=== PATIENT | female | born 1955 | race Caucasian/White ===

== ENCOUNTER → 2020-06-16 11:15 | Outpatient (BNV) | payer MEDICARE, MEDICAID, SELFPAY | PROVIDERS: PCP Internal Medicine; Visit Provider Internal Medicine Medical Oncology | DX: D72.819 Decreased white blood cell count, unspecified (principal) | CPT/HCPCS: 99212; 99213; 99214 ==

== ENCOUNTER 2020-06-18 11:19 | Outpatient (REF) | payer MEDICARE, MEDICAID, SELFPAY | END 2020-06-18 11:20 | disposition home or self-care (01) | LOC: HO.LAB 11:19 | PROVIDERS: Visit Provider Obstetrics & Gynecology | DX: L29.2 Pruritus vulvae (principal) | CPT/HCPCS: 56605; 88305; 99202 ==

== ENCOUNTER 2020-07-11 10:22 | Outpatient (REF) | payer MEDICARE, MEDICAID, SELFPAY | END 2020-07-11 10:23 | disposition home or self-care (01) | LOC: HO.LAB 10:22 | PROVIDERS: Visit Provider Obstetrics & Gynecology | DX: L29.2 Pruritus vulvae (principal) | CPT/HCPCS: 56605; 88305 ==

== ENCOUNTER → 2020-08-01 09:05 | Outpatient (BNVA) | payer MEDICARE, MEDICAID, SELFPAY | PROVIDERS: Visit Provider Obstetrics & Gynecology | DX: L29.2 Pruritus vulvae (principal) | CPT/HCPCS: 99212 ==

== ENCOUNTER → 2020-08-29 10:20 | Outpatient (BNVA) | payer MEDICARE, MEDICAID, SELFPAY | PROVIDERS: PCP Internal Medicine; Visit Provider Obstetrics & Gynecology | DX: L90.0 Lichen sclerosus et atrophicus (principal) | CPT/HCPCS: 99212 ==

== ENCOUNTER 2020-10-02 09:40 | Outpatient (REF) | payer MEDICARE, MEDICAID, SELFPAY ==
[2020-10-02 10:21] LABS: MANUAL DIFF FLAG NO
[2020-10-02 10:25] LABS: Basophils Percent Auto 0.6 % (0-2); Eosinophils Absolute Auto 0.1 X10*3/uL (0.0-0.4); Eosinophils Percent Auto 1.9 % (0-4); Hematocrit 37.7 % (37-47); Hemoglobin 12.2 g/dl (12.0-16.0); Imm Gran Abs Auto 0.01 X10*3/uL (0.00-0.03); Imm Gran Pct Auto 0.2 % (0.0-0.4); Lymphocytes Absolute Auto 1.8 X10*3/uL (1.2-4.9); Lymphocytes Percent Auto 28.7 % (20-40); Mean Corpuscular HGB Conc 32.4 g/dl (31.0-35.0); Mean Corpuscular Hemoglobin 30.2 pg (27.0-33.0); Mean Corpuscular Volume 93.3 fL (80-98); Mean Platelet Volume 9.6 fL (9.4-12.3); Monocytes Absolute Auto 0.5 X10*3/uL (0.1-1.2); Monocytes Percent Auto 8.7 % (2-11); Neutrophils Absolute Auto 3.7 X10*3/uL (2.0-8.3); Neutrophils Percent Auto 59.9 % (45-73); Platelet Count 266 X10*3/uL (160-400); Red Blood Count 4.04 X10*6/uL (4.20-5.50); Red Cell Distribution Width 13.5 % (11.0-16.0); White Blood Count 6.2 X10*3/uL (4.8-10.8)
[2020-10-02 10:54] LABS: Alanine Aminotransferase 26 U/L (0-31); Alkaline Phosphatase 116 U/L (39-117); Anion Gap 11 (12-20); Aspartate Amino Transferase 23 U/L (5-31); Bilirubin Total 0.9 mg/dL (0.0-1.0); Blood Urea Nitrogen 17 mg/dL (9-16); Carbon Dioxide 30 mmol/L (22-29); Chloride 103 mmol/L (96-108); Estimated Glomerular Filt Rate > 60; Glucose Random 99 mg/dL (60-115); Potassium 4.3 mmol/L (3.3-5.1); Sodium 140 mmol/L (135-145); Total Protein 7.3 g/dL (6.5-8.0)
== END 2020-10-02 09:41 | disposition home or self-care (01) ==
LOC: HO.LAB 09:40
PROVIDERS: PCP Internal Medicine; Visit Provider Internal Medicine
DX: D50.8 Other iron deficiency anemias (principal); E78.00 Pure hypercholesterolemia, unspecified; I10 Essential (primary) hypertension; R74.01 Elevation of levels of liver transaminase levels; Z79.01 Long term (current) use of anticoagulants
CPT/HCPCS: 36415; 80053; 85025

== ENCOUNTER 2021-01-07 11:21 | Outpatient (REF) | payer MEDICARE, MEDICAID, SELFPAY ==
--- NOTE | ~2021-01-07 | MM_ITS ---
EXAMINATION: MM SCREENING DIGITAL BREAST TOMOSYNTHESIS, BILATERAL CLINICAL INFORMATION: Screening. Asymptomatic. The lifetime risk of breast cancer based on the Tyrer-Cuzick Model is 4.2%. COMPARISON: Mammography: January 02, 2019 and studies dating back to August 09, 2012 TECHNIQUE: Digital breast tomosynthesis is performed in both the craniocaudal and mediolateral oblique views along with computer-aided detection (CAD). Synthesized 2D images are generated from the tomosynthesis. FINDINGS: There are scattered areas of fibroglandular density (ACR BI-RADS breast composition Category b). There are no significant masses, abnormal calcifications, or other abnormalities. MM/MM tomosynthesis screening BI IMPRESSION: There are no significant changes from prior study. ASSESSMENT: BI-RADS 1: Negative RECOMMENDATION: Routine annual mammography screening. This patient's information was entered into a reminder system with a target due date for their next mammogram.
== END 2021-01-07 11:22 | disposition home or self-care (01) ==
LOC: HO.MAMMO 11:21
PROVIDERS: Visit Provider Internal Medicine
DX: Z12.31 Encounter for screening mammogram for malignant neoplasm of breast (principal)
CPT/HCPCS: 77063; 77067

== ENCOUNTER → 2021-02-18 11:04 | Outpatient (BNVA) | payer MEDICARE, MEDICAID, SELFPAY | PROVIDERS: PCP Internal Medicine; Visit Provider Obstetrics & Gynecology | DX: L90.0 Lichen sclerosus et atrophicus (principal) | CPT/HCPCS: 99212 ==

== ENCOUNTER 2021-04-21 11:59 | Outpatient (REF) | payer MEDICARE, MEDICAID, SELFPAY ==
[2021-04-21 12:35] LABS: MANUAL DIFF FLAG NO
[2021-04-21 12:38] LABS: Basophils Percent Auto 0.6 % (0-2); Eosinophils Absolute Auto 0.1 X10*3/uL (0.0-0.4); Eosinophils Percent Auto 2.2 % (0-4); Hematocrit 36.7 % (37-47); Hemoglobin 11.9 g/dl (12.0-16.0); Imm Gran Abs Auto 0.01 X10*3/uL (0.00-0.03); Imm Gran Pct Auto 0.2 % (0.0-0.4); Lymphocytes Absolute Auto 1.4 X10*3/uL (1.2-4.9); Lymphocytes Percent Auto 25.9 % (20-40); Mean Corpuscular HGB Conc 32.4 g/dl (31.0-35.0); Mean Corpuscular Hemoglobin 30.1 pg (27.0-33.0); Mean Corpuscular Volume 92.9 fL (80-98); Mean Platelet Volume 9.4 fL (9.4-12.3); Monocytes Absolute Auto 0.6 X10*3/uL (0.1-1.2); Monocytes Percent Auto 10.2 % (2-11); Neutrophils Absolute Auto 3.3 X10*3/uL (2.0-8.3); Neutrophils Percent Auto 60.9 % (45-73); Platelet Count 263 X10*3/uL (160-400); Red Blood Count 3.95 X10*6/uL (4.20-5.50); Red Cell Distribution Width 12.8 % (11.0-16.0); White Blood Count 5.4 X10*3/uL (4.8-10.8)
[2021-04-21 13:53] LABS: Alanine Aminotransferase 14 U/L (0-31); Albumin Level 4.2 g/dL (3.5-5.0); Alkaline Phosphatase 98 U/L (39-117); Anion Gap 11 (12-20); Aspartate Amino Transferase 15 U/L (5-31); Bilirubin Total 0.8 mg/dL (0.0-1.0); Blood Urea Nitrogen 16 mg/dL (9-16); Calcium 9.4 mg/dL (8.4-10.2); Carbon Dioxide 27 mmol/L (22-29); Chloride 103 mmol/L (96-108); Cholesterol 149 mg/dL; Estimated Glomerular Filt Rate > 60; Glucose Random 87 mg/dL (60-115); HDL Cholesterol 58 mg/dL; LDL Cholesterol Calculated 77 mg/dl; Potassium 4.1 mmol/L (3.3-5.1); Sodium 137 mmol/L (135-145); Total Protein 7.3 g/dL (6.5-8.0); Triglycerides 73 mg/dL
== END 2021-04-21 12:00 | disposition home or self-care (01) ==
LOC: HO.LAB 11:59
PROVIDERS: Absent Provider Internal Medicine Medical Oncology; PCP Internal Medicine; Visit Provider Internal Medicine
DX: E78.00 Pure hypercholesterolemia, unspecified (principal); F33.42 Major depressive disorder, recurrent, in full remission; I10 Essential (primary) hypertension; R51.9 Headache, unspecified
CPT/HCPCS: 36415; 80053; 80061; 85025

== ENCOUNTER 2021-11-02 10:18 | Outpatient (REF) | payer MEDICARE, MEDICAID, SELFPAY ==
[2021-11-02 12:58] LABS: Alanine Aminotransferase 40 U/L (0-31); Albumin Level 4.1 g/dL (3.5-5.0); Alkaline Phosphatase 131 U/L (39-117); Anion Gap 11 (12-20); Aspartate Amino Transferase 31 U/L (5-31); Bilirubin Total 0.7 mg/dL (0.0-1.0); Blood Urea Nitrogen 17 mg/dL (9-16); Calcium 9.4 mg/dL (8.4-10.2); Carbon Dioxide 27 mmol/L (22-29); Chloride 105 mmol/L (96-108); Estimated Glomerular Filt Rate > 60; Glucose Random 96 mg/dL (60-115); Potassium 4.4 mmol/L (3.3-5.1); Sodium 139 mmol/L (135-145); Thyroid Stimulating Hormone 1.34 uIU/mL (0.32-4.0); Total Protein 7.5 g/dL (6.5-8.0)
[2021-11-03 14:10] LABS: BV Int Neg Control Negative (Negative); BV Int Pos Control Positive (Positive)
== END 2021-11-02 10:19 | disposition home or self-care (01) ==
LOC: HO.LAB 10:18
PROVIDERS: Absent Provider Internal Medicine; PCP Internal Medicine; Visit Provider Advanced Practice Midwife
DX: Z01.411 Encounter for gynecological examination (general) (routine) with abnormal findings (principal); N89.8 Other specified noninflammatory disorders of vagina; E78.00 Pure hypercholesterolemia, unspecified; I10 Essential (primary) hypertension; R06.02 Shortness of breath; R53.83 Other fatigue; L90.0 Lichen sclerosus et atrophicus; L80 Vitiligo
CPT/HCPCS: 36415; 80053; 84443; 87480; 87510; 87660; 99212

== ENCOUNTER 2022-01-08 11:12 | Outpatient (REF) | payer MEDICARE, MEDICAID, SELFPAY ==
--- NOTE | ~2022-01-08 | MM_ITS ---
EXAMINATION: MM SCREENING DIGITAL BREAST TOMOSYNTHESIS, BILATERAL CLINICAL INFORMATION: Screening. Asymptomatic. History reduction mammoplasty 06/16/2017. The lifetime risk of breast cancer based on the Tyrer-Cuzick Model is 4%. COMPARISON: Mammography: 01/07/2021, 01/02/2019, 12/26/2017, 12/15/2016 TECHNIQUE: Digital breast tomosynthesis is performed in both the craniocaudal and mediolateral oblique views along with computer-aided detection (CAD). Synthesized 2D images are generated from the tomosynthesis. Additional right MLO and left MLO x2 views are obtained. FINDINGS: There are scattered areas of fibroglandular density (ACR BI-RADS breast composition Category b). There are no significant masses, abnormal calcifications, or other abnormalities. Prior reduction mammoplasty. There is no developing density or interval mass or architectural abnormality. The axilla are unremarkable. MM/MM tomosynthesis screening BI IMPRESSION: No mammographic evidence of malignancy. ASSESSMENT: BI-RADS 2: Benign RECOMMENDATION: Routine annual mammography screening. This patient's information was entered into a reminder system with a target due date for their next mammogram.
== END 2022-01-08 11:13 | disposition home or self-care (01) ==
LOC: HO.MAMMO 11:12
PROVIDERS: PCP Internal Medicine; Visit Provider Internal Medicine
DX: Z12.31 Encounter for screening mammogram for malignant neoplasm of breast (principal)
CPT/HCPCS: 77063; 77067

== ENCOUNTER 2022-04-27 13:16 | Outpatient (REF) | payer MEDICARE, MEDICAID, SELFPAY ==
[2022-04-27 13:46] LABS: MANUAL DIFF FLAG NO
[2022-04-27 14:23] LABS: Basophils Percent Auto 0.6 % (0-2); Eosinophils Absolute Auto 0.1 X10*3/uL (0.0-0.4); Eosinophils Percent Auto 2.5 % (0-4); Hematocrit 39.1 % (37.0-47.0); Hemoglobin 12.8 g/dl (12.0-16.0); Imm Gran Abs Auto 0.01 X10*3/uL (0.00-0.03); Imm Gran Pct Auto 0.2 % (0.0-0.4); Lymphocytes Absolute Auto 1.6 X10*3/uL (1.2-4.9); Lymphocytes Percent Auto 30.7 % (20-40); Mean Corpuscular HGB Conc 32.7 g/dl (31.0-35.0); Mean Corpuscular Hemoglobin 30.5 pg (27.0-33.0); Mean Corpuscular Volume 93.1 fL (80.0-98.0); Mean Platelet Volume 9.6 fL (9.4-12.3); Monocytes Absolute Auto 0.6 X10*3/uL (0.1-1.2); Monocytes Percent Auto 10.6 % (2-11); Neutrophils Absolute Auto 2.9 x10*3/uL (2.0-8.3); Neutrophils Percent Auto 55.4 % (45-73); Platelet Count 292 X10*3/uL (160-400); Red Cell Distribution Width 13.3 % (11.0-16.0); White Blood Count 5.3 X10*3/uL (4.8-10.8)
[2022-04-27 15:10] LABS: Alanine Aminotransferase 29 U/L (0-31); Albumin Level 4.1 g/dL (3.5-5.0); Alkaline Phosphatase 130 U/L (39-117); Anion Gap 13 (12-20); Aspartate Amino Transferase 24 U/L (5-31); Bilirubin Total 0.7 mg/dL (0.0-1.0); Blood Urea Nitrogen 16 mg/dL (9-16); Calcium 8.7 mg/dL (8.4-10.2); Carbon Dioxide 28 mmol/L (22-29); Chloride 101 mmol/L (96-108); Cholesterol 165 mg/dL; Estimated Glomerular Filt Rate > 60; Glucose Random 85 mg/dL (60-115); HDL Cholesterol 56 mg/dL; LDL Cholesterol Calculated 96 mg/dl; Potassium 4.4 mmol/L (3.3-5.1); Sodium 138 mmol/L (135-145); Total Protein 7.2 g/dL (6.5-8.0); Triglycerides 66 mg/dL
[2022-04-27 16:55] LABS: Estimated Average Glucose 117 mg/dL; Hemoglobin A1c % 5.7 %
== END 2022-04-27 13:17 | disposition home or self-care (01) ==
LOC: HO.LAB 13:16
PROVIDERS: PCP Internal Medicine; Visit Provider Internal Medicine
DX: D50.8 Other iron deficiency anemias (principal); I10 Essential (primary) hypertension; I48.91 Unspecified atrial fibrillation; M48.061 Spinal stenosis, lumbar region without neurogenic claudication
CPT/HCPCS: 36415; 80053; 80061; 83036; 85025

== ENCOUNTER 2022-10-28 13:21 | Outpatient (REF) | payer OTHER, SELFPAY ==
[2022-10-28 13:34] LABS: MANUAL DIFF FLAG NO
[2022-10-28 14:02] LABS: Basophils Percent Auto 0.5 % (0-2); Eosinophils Absolute Auto 0.1 X10*3/uL (0.0-0.4); Eosinophils Percent Auto 1.7 % (0-4); Hematocrit 39.7 % (37.0-47.0); Imm Gran Abs Auto 0.02 X10*3/uL (0.00-0.03); Imm Gran Pct Auto 0.3 % (0.0-0.4); Lymphocytes Absolute Auto 1.7 X10*3/uL (1.2-4.9); Lymphocytes Percent Auto 25.8 % (20-40); Mean Corpuscular HGB Conc 32.7 g/dl (31.0-35.0); Mean Corpuscular Hemoglobin 30.7 pg (27.0-33.0); Mean Corpuscular Volume 93.9 fL (80.0-98.0); Mean Platelet Volume 9.2 fL (9.4-12.3); Monocytes Absolute Auto 0.6 X10*3/uL (0.1-1.2); Monocytes Percent Auto 8.9 % (2-11); Neutrophils Absolute Auto 4.1 x10*3/uL (2.0-8.3); Neutrophils Percent Auto 62.8 % (45-73); Platelet Count 271 X10*3/uL (160-400); Red Blood Count 4.23 X10*6/uL (4.20-5.50); Red Cell Distribution Width 13.3 % (11.0-16.0); White Blood Count 6.5 X10*3/uL (4.8-10.8)
[2022-10-28 15:58] LABS: Alanine Aminotransferase 49 U/L (0-31); Alkaline Phosphatase 122 U/L (39-117); Anion Gap 12 (12-20); Aspartate Amino Transferase 32 U/L (5-31); Bilirubin Total 0.8 mg/dL (0.0-1.0); Blood Urea Nitrogen 17 mg/dL (9-16); Carbon Dioxide 31 mmol/L (22-29); Chloride 101 mmol/L (96-108); Estimated Glomerular Filt Rate > 60; Glucose Random 101 mg/dL (60-115); Potassium 4.5 mmol/L (3.3-5.1); Sodium 139 mmol/L (135-145)
[2022-10-28 16:13] LABS: Ferritin 119 ng/mL (10-250); Folate 7.9 ng/mL (> or = 4.0); Vitamin B12 459 pg/mL (200-900)
== END 2022-10-28 13:22 | disposition home or self-care (01) ==
LOC: HO.LAB 13:21
PROVIDERS: PCP Internal Medicine; Visit Provider Internal Medicine
DX: D50.8 Other iron deficiency anemias (principal); I10 Essential (primary) hypertension; I48.91 Unspecified atrial fibrillation; Z98.84 Bariatric surgery status
CPT/HCPCS: 36415; 80053; 82607; 82728; 82746; 85025

== ENCOUNTER 2023-01-22 10:26 | Outpatient (REF) | payer OTHER, SELFPAY ==
--- NOTE | ~2023-01-22 | MM_ITS ---
EXAMINATION: MM SCREENING DIGITAL BREAST TOMOSYNTHESIS, BILATERAL CLINICAL INFORMATION: Screening. Asymptomatic. The lifetime risk of breast cancer based on the Tyrer-Cuzick Model is 4%. COMPARISON: Mammography: 01/08/2022, 01/07/2021, 01/02/2019 TECHNIQUE: Digital breast tomosynthesis is performed in both the craniocaudal and mediolateral oblique views along with computer-aided detection (CAD). Synthesized 2D images are generated from the tomosynthesis. FINDINGS: There are scattered areas of fibroglandular density (ACR BI-RADS breast composition Category b). There are no significant masses, abnormal calcifications, or other abnormalities. Parenchymal pattern is similar to prior studies. There is no developing density or architectural abnormality. The axilla and skin contours are unremarkable. No significant changes. MM/MM tomosynthesis screening BI IMPRESSION: No mammographic evidence of malignancy. ASSESSMENT: BI-RADS 1: Negative RECOMMENDATION: Routine annual mammography screening. This patient's information was entered into a reminder system with a target due date for their next mammogram.
== END 2023-01-22 10:27 | disposition home or self-care (01) ==
LOC: HO.MAMMO 10:26
PROVIDERS: PCP Internal Medicine; Visit Provider Internal Medicine
DX: Z12.31 Encounter for screening mammogram for malignant neoplasm of breast (principal)
CPT/HCPCS: 77063; 77067

== ENCOUNTER 2023-04-22 10:52 | Emergency (ER) | payer OTHER, SELFPAY ==
--- NOTE | ~2023-04-22 | XR_ITS ---
EXAMINATION: XR HIP, LEFT CLINICAL INFORMATION: Pain COMPARISON: Left hip radiograph from 12/23/2016 TECHNIQUE: Single view the pelvis 2 views of the left hip FINDINGS: No acute visible fracture or dislocation. Degenerative changes of the bilateral femoral acetabular joints. Degenerative arthropathy of the lower lumbar spine and lumbosacral spine. Enthesopathy along the bilateral iliac wings. Joint spaces and alignment are otherwise maintained. Soft tissues are unremarkable. Bowel gas is unremarkable. Pelvic phleboliths are noted. XR/XR hip LT w PEL1V IMPRESSION: 1. No acute visible fracture or dislocation. 2. Degenerative changes of the bilateral femoral acetabular joints.
[2023-04-22 11:02] VITALS: BP 151/69; PULSE 60; RESP 16; TEMP 36.8; O2SAT 99; BMI 34.5
--- NOTE | 2023-04-22 11:04 | ED.GENADULT ---
HPI - General Adult General Chief complaint: General Medical Stated complaint: ? hip pain Time Seen by Provider: 04/22/23 11:50 History of Present Illness HPI narrative: 68 year old female with history of osteoarthritis, seen by orthopedics and on chronic oxycodone, as well as depression, amongst others, presents to ER today with 4-day history of left-sided back pain radiating through left leg. Patient describes that pain originates in left gluteus area and runs posteriorly through leg until wrapping around and reaching dorsum of left foot. Pain does not extend into toes. She says pain is mild at rest and worsens with standing and walking. Says it can be sharp and feels like there is tension in her left lower back. She has been taking Tylenol as well as Percocet for pain. She denies any history of trauma or injury, stating that the pain began while sitting down. Denies history of back surgery. Denies any incontinence or numbness in saddle area. MD complaint: left hip, buttock and low back pain Onset (ago): day(s) Location: back Radiation: distal Severity: moderate Quality: sharp and constant Relieving factors: rest Exacerbating factors: movement Associated symptoms: denies other symptoms Treatments prior to arrival: other (Tylenol, oxycodone) Related Data Home Medications Medication Instructions Recorded Confirmed amlodipine 5 mg tablet 1 tab PO DAILY 06/16/20 11/01/22 apixaban 5 mg tablet (Eliquis) 1 tab PO BID 06/16/20 11/01/22 bupropion HCl 100 mg tablet,12 hr 1 tab PO QAM 06/16/20 11/01/22 sustained-release cyanocobalamin (vitamin B-12) 1,000 mcg QMONTH 06/16/20 11/01/22 1,000 mcg/mL injection syringe gabapentin 300 mg capsule 300 mg PO BID 06/16/20 11/01/22 metoprolol succinate 25 mg 25 mg PO BID 06/16/20 11/01/22 tablet,extended release 24 hr multivitamin 1 tab PO DAILY 06/16/20 11/01/22 omeprazole 20 mg capsule,delayed 20 mg PO DAILY 06/16/20 11/01/22 release tramadol 50 mg tablet 50 mg PO DAILY 06/16/20 11/01/22 atorvastatin 20 mg tablet 20 mg PO DAILY 11/02/21 11/01/22 ferrous sulfate 324 mg (65 mg 324 mg PO DAILY 11/02/21 11/01/22 iron) tablet,delayed release trazodone 150 mg tablet 150 mg PO BEDTIME PRN Anxiety 11/02/21 11/01/22 Previous Rx's Medication Instructions Recorded clobetasol 0.05 % topical ointment 1 appl topical .every other night 08/29/20 6 weeks #60 grams cyclobenzaprine 10 mg tablet 10 mg PO TID PRN muscle spasm #14 04/22/23 tabs lidocaine 5 % topical patch 1 patch topical DAILY #15 ea 04/22/23 prednisone 50 mg tablet 50 mg PO DAILY #5 tabs 04/22/23 Allergies Allergy/AdvReac Type Severity Reaction Status Date / Time No Known Allergies Allergy Verified 08/05/22 11:16 [No Known Allergies*] Review of Systems Review of Systems: Yes all other systems are reviewed and are negative [facility] Past Medical History Medical History Anemia B12 deficiency Hepatitis C Leukopenia Surgical History H/O bilateral breast reduction surgery H/O gastric bypass H/O: hysterectomy Family History Family History (Updated 08/05/22 @ 11:16 by Eun Heath CMA) Other No family history of cancer Social History Social History Household Members: Children Housing: Apartment Are you a primary patient care provider to a significant other at home: No Do you presently have visiting nurse or other home services: No Alcohol intake: never Patient Tobacco Use Status: Never used Tobacco Advance Directives: Yes Advance Directives Information Provided: Yes Advance Directives on File: No service: No Current occupational status: unemployed Sexual orientation: Straight/Heterosexual Gender identity: Female Physical Exam ED Vital Signs: Vital Signs - 24 hr 04/22/23 11:02 Temperature 98.3 F Pulse Rate 60 Respiratory Rate 16 Blood Pressure 151/69 H Pulse Oximetry 99 Oxygen Delivery Method Room Air BMI result Body Mass Index 34.5 Const General: cooperative, healthy appearing, comfortable and no acute distress Orientation/consciousness: patient oriented x3 Limitations: language barrier (History obtained by translation from family members. ) Resp Effort & Inspection: normal respiratory effort and able to speak in complete sentences Auscultation: clear to auscultation bilaterally Cardio Rate: regular rate Rhythm: regular rhythm Peripheral pulses: posterior tibial pulses present and dorsalis pedis present Back/Spine/Pelvis Thoracic/Lumbar Spine: thoracic and lumbar spine normal to inspection and straight leg raise positive left Sacrum: no ecchymosis, no erythema and no swelling Neuro General: patient oriented x3 Extrem Left lower extremity: normal to inspection, full ROM, normal capillary refill, hip/thigh (Pain increased with extension of left hip.) and foot Course Course Course Narrative: This is an RME: Additional HPI, ROS, PE not included below will be deferred to primary provider. This is a [id number], with no known medical problems, presenting to the emergency department with complaints of left hip pain x 4 days. No trauma or injury. TTP to left posterior hip. Ambulatory with antalgic gait. No urinary symptoms. VSS. Plan: Xr left hip ordered. Medical Decision Making Medical Decision Making [facility] Narrative: 68-year-old female with history of osteoarthritis on chronic oxycodone, presents with 4-day history of pain originating in lumbar/sacral region of left back, and radiating through posterior leg and wrapping around onto dorsum of foot. Physical exam remarkable for positive straight leg raise and increased pain with extension of hip. Pulses and capillary refill intact. No numbness to saddle region or incontinence. Discharged home with prescription for Flexeril and prednisone. Will instruct patient to follow up with her orthopedist. Differential Diagnosis Differential Diagnoses: The differential diagnosis associated with the presentation includes Sciatic nerve root compression, lumbosacral radiculopathy, cauda equina syndrome, hip fracture, gluteus strain. Independent Interpretation I performed an independent interpretation of an: Plain X-Ray Interpretation: no acute fx, agree w/ radiology read Radiology Impression Discussion of test interpretation with radiology: I have reviewed the radiologist's reading. Radiologist Impression: EXAMINATION: XR HIP, LEFT CLINICAL INFORMATION: Pain COMPARISON: Left hip radiograph from 12/23/2016 TECHNIQUE: Single view the pelvis 2 views of the left hip FINDINGS: No acute visible fracture or dislocation. Degenerative changes of the bilateral femoral acetabular joints. Degenerative arthropathy of the lower lumbar spine and lumbosacral spine. Enthesopathy along the bilateral iliac wings. Joint spaces and alignment are otherwise maintained. Soft tissues are unremarkable. Bowel gas is unremarkable. Pelvic phleboliths are noted. XR/XR hip LT w PEL1V IMPRESSION: 1.? No acute visible fracture or dislocation. 2.? Degenerative changes of the bilateral femoral acetabular joints. Independent Historian Clinical information obtained from an independent historian. History obtained from or confirmed by: Other (adult children at the bedside) External Record Review External record reviewed: Outpatient record and Prior outpatient labs Prescription Management I considered prescription management with: Pain Medication Chronic Conditions Patient?s care impacted by: Other (chronic pain, OA, obesity) Critical Care Time Critical Care Time Critical Care Time: No Discharge Plan Discharge Clinical Impression: Sciatica Patient Disposition: Home, Self-Care Instructions: Sciatica (ED) Additional Instructions: Your x-ray today did not show any broken bones. Take the prescribed medications to help with pain and inflammation that may be compressing a nerve and causing your symptoms Rest. No strenuous activity Follow up with [facility] If you develop new or worsening symptoms call 911 or come back to the ER for further evaluation. Jones radiograf?a de hoy no mostr? dulce?n hueso roto. Moraida los medicamentos recetados para ayudar con el dolor y la inflamaci?n que pueden estar comprimiendo un nervio y causando valentina s?ntomas. Descansar. Sin actividad extenuante Seguimiento con [facility] Si desarrolla s?ntomas nuevos o que empeoran, llame al 911 o regrese a la le de emergencias para spencer evaluaci?n adicional. Prescriptions: New cyclobenzaprine 10 mg tablet 10 mg PO TID PRN (Reason: muscle spasm) Qty: 14 0RF lidocaine 5 % adhesive patch,medicated 1 patch topical DAILY Qty: 15 0RF Rx Instructions: leave on most painful area for up to 12 hrs prednisone 50 mg tablet 50 mg PO DAILY Qty: 5 0RF No Action amlodipine 5 mg tablet 1 tab PO DAILY bupropion HCl 100 mg tablet sustained-release 12 hr 1 tab PO QAM Eliquis 5 mg tablet 1 tab PO BID gabapentin 300 mg Capsule 300 mg PO BID omeprazole 20 mg Capsule,Delayed Release(Dr/Ec) 20 mg PO DAILY multivitamin Tablet 1 tab PO DAILY tramadol 50 mg Tablet 50 mg PO DAILY metoprolol succinate 25 mg Tablet Extended Release 24 Hr 25 mg PO BID cyanocobalamin (vitamin B-12) 1,000 mcg/mL Syringe 1,000 mcg QMONTH clobetasol 0.05 % ointment 1 appl topical .every other night 42 Days Qty: 60 3RF ferrous sulfate 324 mg (65 mg iron) tablet,delayed release (DR/EC) 324 mg PO DAILY trazodone 150 mg tablet 150 mg PO BEDTIME PRN (Reason: Anxiety) atorvastatin 20 mg tablet 20 mg PO DAILY Referrals: Laura Morgan MD [Primary Care Provider] - Interventions: ED Discharge Assessment Last Done: 04/22/23 14:09 Discharge Date/Time: 04/22/23 14:16 Print Language: Arabic
== END 2023-04-22 14:16 | disposition home or self-care (01) ==
PROVIDERS: Emergency Provider Emergency Medicine; PCP Internal Medicine
DX: M54.42 Lumbago with sciatica, left side (principal)
CPT/HCPCS: 73502; 99282; 99283

== ENCOUNTER → 2023-12-30 11:53 | Outpatient (BNVA) | payer OTHER, SELFPAY | PROVIDERS: PCP Internal Medicine; Visit Provider Nurse Practitioner ==

== ENCOUNTER 2024-01-30 10:54 | Outpatient (REF) | payer OTHER, SELFPAY ==
--- NOTE | ~2024-01-30 | MM_ITS ---
EXAMINATION: MM SCREENING DIGITAL BREAST TOMOSYNTHESIS, BILATERAL CLINICAL INFORMATION: Screening. Asymptomatic. The patient is status post bilateral breast reduction. COMPARISON: Mammography: This study is compared with prior exams dating back to 2019. TECHNIQUE: Digital breast tomosynthesis is performed in both the craniocaudal and mediolateral oblique views along with computer-aided detection (CAD). Synthesized 2D images are generated from the tomosynthesis. FINDINGS: There are scattered areas of fibroglandular density (ACR BI-RADS breast composition Category b). There are no significant masses, abnormal calcifications, or other abnormalities. Post reduction changes are present in each breast. MM/MM tomosynthesis screening BI IMPRESSION: No mammographic evidence of malignancy. ASSESSMENT: BI-RADS BI-RADS 2 - Benign Findings RECOMMENDATION: Routine annual mammography screening. 1 year F/U This examination should not preclude the clinical evaluation of a suspicious palpable abnormality. This patient's information was entered into a reminder system with a target due date for their next mammogram.
== END 2024-01-30 10:55 | disposition home or self-care (01) ==
LOC: HO.MAMMO 10:54
PROVIDERS: PCP Internal Medicine; Visit Provider Internal Medicine
DX: Z12.31 Encounter for screening mammogram for malignant neoplasm of breast (principal)
CPT/HCPCS: 77063; 77067

== ENCOUNTER → 2024-01-30 11:00 | Outpatient (BNV) | payer OTHER, SELFPAY | PROVIDERS: PCP Internal Medicine; Visit Provider Radiology Diagnostic Radiology | DX: Z12.31 Encounter for screening mammogram for malignant neoplasm of breast (principal) | CPT/HCPCS: 77063; 77067 ==

== ENCOUNTER 2024-02-10 12:03 | Outpatient (AMB) | payer OTHER, SELFPAY ==
--- NOTE | 2024-02-10 12:09 | MHC.OFFVIS ---
Vital Signs 02/10/24 12:11 Height 5 ft 3 in Weight 203 lb BMI 36.0 BP 141/70 H Blood Pressure Location Lt brachial Position Sitting Pulse 54 Intake Visit Reasons: 6 week follow up Intake Note: Patient 6 weeks follow up stool results Patient cc: abdominal pain with bloating, acid reflex with some burning sensation on and off, and denies any other GI issues. Nursing Home Physician Required: Yes Nursing Home Physician Name: [facility] interpeter Accompanied by: Self / Same As Patient Allergies amlodipine Allergy (Unknown, Verified 02/10/24 12:09) Unknown losartan Allergy (Unknown, Verified 02/10/24 12:09) Unknown HPI HPI 6 week follow up: Details: Assessment & Plan (1) Pre-op examination: Code(s): Z01.818 - Encounter for other preprocedural examination Category: Medical (2) CKD (chronic kidney disease) stage 3, GFR 30-59 ml/min: Code(s): N18.30 - Chronic kidney disease, stage 3 unspecified Category: Medical (3) History of DVT in adulthood: Code(s): Z86.718 - Personal history of other venous thrombosis and embolism Category: Medical (4) GERD (gastroesophageal reflux disease): Code(s): K21.9 - Gastro-esophageal reflux disease without esophagitis Category: Medical (5) Chronic anticoagulation: Comment: on Eliquis Code(s): Z79.01 - [facility] (current) use of anticoagulants Category: Medical (6) Afib: Code(s): I48.91 - Unspecified atrial fibrillation Category: Medical Plan [facility] #[id number] She has had prior colonoscopies with Dr. Mills that were negative. She has no FHX of crc or polyps and given her other comorbid medical conditions she is a good Cologuard candidate. I present this to her. Since she would prefer this to a colonoscopy at this time I will order it and see her in 6 weeks Orders: Orders Colonoscopy - GI Use Only 12/30/23 Z01.818 - Encounter for other preprocedural examination Medications: New peg 3350-electrolytes 236-22.74-6.74 -5.86 gram (Golytely) until fecal effluent is clear; do not exceed a total volume of 2,000 mL 240 mL PO Q10M 4,000 mL 0RF 1 day Z12.11 - Encounter for screening for malignant neoplasm of colon bisacodyl (Dulcolax (bisacodyl)) 10 mg (2 x 5 mg) PO BEDTIME 4 tabs 0RF 2 days COLOGUARD She had a positive Cologuard Laboratory Tests 11/17/23 09:52 WBC 7.9 Hgb 12.5 Hct 38.4 MCV 92.8 MCH 30.2 Plt Count 350 D Estimated GFR 54 Ferritin 55 Total Bilirubin 0.6 AST 34 H ALT 52 H Alkaline Phosphatase 98 TODAY'S VISIT [facility] #Jed Live She has upper abd pain but it resolves when she takes omeprazole. However, she has only taking the omeprazole when she gets the pain which isn't the best plan. I explained to her that omeprazole is really meant to be taken every day because it has a 24 hour onset of symptoms. She says she will try taking that every day. In the meantime I will add an EGD to her colonoscopy. There are no prior problems with anesthesia or sedation. She does have AFib and history of DVT and is on Eliquis, there is no respiratory problems. There are no infectious disease problems. Again, she had a positive Cologuard although no polyps on her past colonoscopies with the last being in [address] Mills. Return office visit after the procedures. [facility] Medical History Chronic hepatitis C B12 deficiency Hepatitis C Leukopenia Anemia Surgical History S/P laparoscopy with lysis of adhesions S/P trigger finger release H/O colonoscopy H/O bilateral breast reduction surgery H/O: hysterectomy H/O gastric bypass Family History Other No family history of cancer Social History Household Members: Children Housing: Apartment Are you a primary behavioral health care manager to a significant other at home: No Do you presently have visiting nurse or other home services: No Alcohol intake: never Patient Tobacco Use Status: Never used Tobacco service: No Current occupational status: unemployed Sexual orientation: Straight/Heterosexual Gender identity: Female Female Reproductive History Menstrual Age of Menarche: 11 Review of Systems Const Denies fatigue, Denies fever(s), Denies night sweats, Denies poor appetite and Denies weight loss ENT Reports Normal hearing present, Denies dental pain, Denies dysphagia, Denies hearing loss, Denies mouth pain, Denies odynophagia, Denies throat swelling, Denies tongue swelling and Reports other (Dentition adequate) Card Reports no additional complaints Resp Reports no additional complaints GI Details: Reports abdominal pain, Denies melena, Denies bloating, Denies hematochezia, Denies constipation, Denies GI cramping, Denies dysphagia, Denies excessive flatus, Denies early satiety, Denies heartburn, Denies diarrhea, Denies nausea, Denies odynophagia, Denies vomiting and Denies hematemesis Skin/Breast Denies pruritus, Denies lesions, Denies rash and Denies jaundice Neuro Reports Normal hearing present and Denies Abnormal speech present Endo Denies fatigue Aller/Immun Denies throat swelling and Denies tongue swelling Physical Exam Vital Signs: Last Vital Signs Pulse 54 02/10/24 12:11 BP 141/70 H 02/10/24 12:11 BMI result Body Mass Index 36.0 Const General: cooperative, no acute distress, well developed and well groomed Nutritional Appearance: well nourished and obese Orientation/consciousness: oriented to person, oriented to place and oriented to time Limitations: language barrier HEENT Head: Yes normocephalic and Yes atraumatic Eyes General: appearance normal, both eyes and all related structures Pupils: Equal, round and reactive pupils present Neck Neck: Yes normal visual inspection and Yes no lymphadenopathy Thyroid: Thyroid normal Resp Effort & Inspection: normal respiratory effort and able to speak in complete sentences Auscultation: clear to auscultation bilaterally Cardio Rate: regular rate Rhythm: regular rhythm Heart sounds: Normal, physiologic split S2 sound present Peripheral pulses: radial pulses present and posterior tibial pulses present GI Inspection: No distended, Yes Abdominal panniculus present, Yes obesity, Yes scar and Yes striae Palpation (GI): Soft to palpation, nontender, no guarding, not rigid and No hepatosplenomegaly present Percussion: Yes normal to percussion Auscultation: normal bowel sounds Rectal Exam - Female: deferred Abdomen image: 1. SURGICAL SCAR 2. SURGICA SCAR OLD GASTRIC BYPASS Skin General skin exam: no rashes or lesions noted, turgor normal, skin not dry, no jaundice, No spider nevi and no striae Rashes: no rashes Nails: normal Neuro General: oriented to person, oriented to place and oriented to time Cranial nerves: Yes Equal, round and reactive pupils present and Yes Normal hearing present Speech: No Abnormal speech present Extrem General: Yes normal to inspection, No clubbing, No cyanosis and No edema Psych Appearance: grossly normal and well kempt Mental Status: mental status grossly normal Speech and movement: Normal speech and movement present Affect: normal affect Attitude: cooperative Thought process: Normal thought process present and not confabulating Thought content: Normal thought content present Insight: Limited insight present (Psych) Judgement: Limited judgement present (Psych) Assessment & Plan Assessment & Plan (1) Positive colorectal cancer screening using Cologuard test: Code(s): R19.5 - Other fecal abnormalities Category: Medical (2) Chronic anticoagulation: Comment: on Candyis Code(s): Z79.01 - buttermilk drier operator (current) use of anticoagulants Category: Medical (3) GERD (gastroesophageal reflux disease): Code(s): K21.9 - Gastro-esophageal reflux disease without esophagitis Category: Medical (4) History of DVT in adulthood: Code(s): Z86.718 - Personal history of other venous thrombosis and embolism Category: Medical (5) CKD (chronic kidney disease) stage 3, GFR 30-59 ml/min: Code(s): N18.30 - Chronic kidney disease, stage 3 unspecified Category: Medical (6) Upper abdominal pain: Code(s): R10.10 - Upper abdominal pain, unspecified Category: Medical Plan [facility] #Jed Live She has upper abd pain but it resolves when she takes omeprazole. However, she has only taking the omeprazole when she gets the pain which isn't the best plan. I explained to her that omeprazole is really meant to be taken every day because it has a 24 hour onset of symptoms. She says she will try taking that every day. In the meantime I will add an EGD to her colonoscopy. There are no prior problems with anesthesia or sedation. She does have AFib and history of DVT and is on Eliquis, there is no respiratory problems. There are no infectious disease problems. Again, she had a positive Cologuard although no polyps on her past colonoscopies with the last being in [address] Mills. Return office visit after the procedures. Orders: Orders EGD/[place] Combo - GI Use Only Today R10.10 - Upper abdominal pain, unspecified, R19.5 - Other fecal abnormalities Medications: New omeprazole 20 mg PO DAILY 30 caps 6RF K21.9 - Gastro-esophageal reflux disease without esophagitis, N18.30 - Chronic kidney disease, stage 3 unspecified, R10.10 - Upper abdominal pain, unspecified, R19.5 - Other fecal abnormalities, Z79.01 - buttermilk drier operator (current) use of anticoagulants, Z86.718 - Personal history of other venous thrombosis and embolism Refilled peg 3350-electrolytes 236-22.74-6.74 -5.86 gram (Golytely) until fecal effluent is clear; do not exceed a total volume of 2,000 mL 240 mL PO Q10M 4,000 mL 0RF 1 day Z12.11 - Encounter for screening for malignant neoplasm of colon bisacodyl (Dulcolax (bisacodyl)) 10 mg (2 x 5 mg) PO BEDTIME 4 tabs 0RF 2 days Coding Level of Care Code Est Pt Level 4 (37048) Diagnoses Positive colorectal cancer screening using Cologuard test R19.5 Chronic anticoagulation Z79.01 GERD (gastroesophageal reflux disease) K21.9 History of DVT in adulthood Z86.718 CKD (chronic kidney disease) stage 3, GFR 30-59 ml/min N18.30 Upper abdominal pain R10.10
[2024-02-10 12:11] VITALS: BP 141/70; PULSE 54; BMI 36.0
== END 2024-02-10 12:35 | disposition home or self-care (01) ==
PROVIDERS: PCP Internal Medicine; Visit Provider Nurse Practitioner
DX: R19.5 Other fecal abnormalities (principal); Z79.01 Long term (current) use of anticoagulants; K21.9 Gastro-esophageal reflux disease without esophagitis; Z86.718 Personal history of other venous thrombosis and embolism; N18.30 Chronic kidney disease, stage 3 unspecified; R10.10 Upper abdominal pain, unspecified
CPT/HCPCS: 99214

== ENCOUNTER → 2024-02-10 12:03 | Outpatient (BNVA) | payer OTHER, SELFPAY | PROVIDERS: PCP Internal Medicine; Visit Provider Nurse Practitioner | DX: R19.5 Other fecal abnormalities (principal); R10.10 Upper abdominal pain, unspecified; K21.9 Gastro-esophageal reflux disease without esophagitis; N18.30 Chronic kidney disease, stage 3 unspecified; Z79.01 Long term (current) use of anticoagulants; Z86.718 Personal history of other venous thrombosis and embolism | CPT/HCPCS: 99212 ==

== ENCOUNTER 2024-03-05 10:59 | Outpatient (REF) | payer OTHER, SELFPAY ==
[2024-03-05 13:18] LABS: MANUAL DIFF FLAG NO
[2024-03-05 13:26] LABS: Basophils Percent Auto 0.7 % (0-2); Eosinophils Absolute Auto 0.1 X10*3/uL (0.0-0.4); Eosinophils Percent Auto 1.9 % (0-4); Hematocrit 38.8 % (37.0-47.0); Hemoglobin 12.5 g/dl (12.0-16.0); Imm Gran Abs Auto 0.01 X10*3/uL (0.00-0.03); Imm Gran Pct Auto 0.2 % (0.0-0.4); Lymphocytes Absolute Auto 1.6 X10*3/uL (1.2-4.9); Mean Corpuscular HGB Conc 32.2 g/dl (31.0-35.0); Mean Corpuscular Hemoglobin 29.8 pg (27.0-33.0); Mean Corpuscular Volume 92.4 fL (80.0-98.0); Mean Platelet Volume 9.7 fL (9.4-12.3); Monocytes Absolute Auto 0.5 X10*3/uL (0.1-1.2); Monocytes Percent Auto 9.2 % (2-11); Neutrophils Absolute Auto 3.5 x10*3/uL (2.0-8.3); Platelet Count 256 X10*3/uL (160-400); Red Cell Distribution Width 13.6 % (11.0-16.0); White Blood Count 5.7 X10*3/uL (4.8-10.8)
[2024-03-05 13:46] LABS: Alanine Aminotransferase 44 U/L (0-31); Alkaline Phosphatase 108 U/L (39-117); Anion Gap 13 (12-20); Aspartate Amino Transferase 29 U/L (5-31); Bilirubin Total 0.9 mg/dL (0.0-1.0); Blood Urea Nitrogen 16 mg/dL (9-16); Calcium 9.3 mg/dL (8.4-10.2); Carbon Dioxide 27 mmol/L (22-29); Chloride 105 mmol/L (96-108); Cholesterol 157 mg/dL (<200); Estimated Glomerular Filt Rate > 60; Glucose Random 101 mg/dL (60-115); HDL Cholesterol 62 mg/dL (>40); LDL Cholesterol Calculated 82 mg/dL (<100); Potassium 4.3 mmol/L (3.3-5.1); Sodium 141 mmol/L (135-145); Total Protein 7.4 g/dL (6.5-8.0); Triglycerides 69 mg/dL (<150)
== END 2024-03-05 11:00 | disposition home or self-care (01) ==
LOC: HO.10HDL 10:59
PROVIDERS: Visit Provider Internal Medicine
DX: Z00.00 Encounter for general adult medical examination without abnormal findings (principal); E78.00 Pure hypercholesterolemia, unspecified; I10 Essential (primary) hypertension; I48.91 Unspecified atrial fibrillation; Z79.01 Long term (current) use of anticoagulants
CPT/HCPCS: 36415; 80053; 80061; 85025

== ENCOUNTER 2024-05-03 10:20 | Outpatient (REF) | payer OTHER, SELFPAY ==
[2024-05-03 10:33] LABS: MANUAL DIFF FLAG NO
[2024-05-03 11:17] LABS: Basophils Percent Auto 0.7 % (0-2); Eosinophils Absolute Auto 0.2 X10*3/uL (0.0-0.4); Eosinophils Percent Auto 2.9 % (0-4); Hematocrit 38.9 % (37.0-47.0); Hemoglobin 12.4 g/dl (12.0-16.0); Imm Gran Abs Auto 0.02 X10*3/uL (0.00-0.03); Imm Gran Pct Auto 0.3 % (0.0-0.4); Lymphocytes Absolute Auto 1.7 X10*3/uL (1.2-4.9); Lymphocytes Percent Auto 29.3 % (20-40); Mean Corpuscular HGB Conc 31.9 g/dl (31.0-35.0); Mean Corpuscular Hemoglobin 29.3 pg (27.0-33.0); Mean Platelet Volume 9.5 fL (9.4-12.3); Monocytes Absolute Auto 0.6 X10*3/uL (0.1-1.2); Monocytes Percent Auto 10.7 % (2-11); Neutrophils Absolute Auto 3.3 x10*3/uL (2.0-8.3); Neutrophils Percent Auto 56.1 % (45-73); Platelet Count 275 X10*3/uL (160-400); Red Blood Count 4.23 X10*6/uL (4.20-5.50); Red Cell Distribution Width 13.8 % (11.0-16.0); White Blood Count 5.9 X10*3/uL (4.8-10.8)
[2024-05-03 11:27] LABS: Alanine Aminotransferase 48 U/L (0-31); Alkaline Phosphatase 128 U/L (39-117); Anion Gap 10 (12-20); Aspartate Amino Transferase 37 U/L (5-31); Bilirubin Total 0.9 mg/dL (0.0-1.0); Blood Urea Nitrogen 16 mg/dL (9-16); Calcium 9.6 mg/dL (8.4-10.2); Carbon Dioxide 29 mmol/L (22-29); Chloride 104 mmol/L (96-108); Cholesterol 155 mg/dL (<200); Estimated Glomerular Filt Rate > 60; Glucose Random 94 mg/dL (60-115); HDL Cholesterol 58 mg/dL (>40); LDL Cholesterol Calculated 81 mg/dL (<100); Potassium 4.4 mmol/L (3.3-5.1); Sodium 139 mmol/L (135-145); Total Protein 7.3 g/dL (6.5-8.0); Triglycerides 81 mg/dL (<150)
== END 2024-05-03 10:21 | disposition home or self-care (01) ==
LOC: HO.LAB 10:20
PROVIDERS: PCP Internal Medicine; Visit Provider Internal Medicine
DX: E78.00 Pure hypercholesterolemia, unspecified (principal); I10 Essential (primary) hypertension; I48.91 Unspecified atrial fibrillation; Z79.01 Long term (current) use of anticoagulants
CPT/HCPCS: 36415; 80053; 80061; 85025

== ENCOUNTER 2024-07-12 10:21 | Day surgery (SDC) | payer OTHER, SELFPAY ==
[2024-07-10 10:07] VITALS: BMI 36.0
--- NOTE | 2024-07-11 12:16 | P.CONAN_ITS ---
Documented by User: Adrianna Flores NP 07/11/24 14:32 HPI - Anesthesia Eval Consult details Narrative: 69yo F for Colonoscopy Eliquis for afib Hx DVT PMFSH Active Problems Active Problems: All Active Problems Upper abdominal pain (Acute) Positive colorectal cancer screening using Cologuard test (Acute) Pre-op examination (Acute) Generalized osteoarthritis (Acute) Spinal stenosis (Acute) Gout (Acute) CKD (chronic kidney disease) stage 3, GFR 30-59 ml/min (Acute) Mitral regurgitation (Acute) History of DVT in adulthood (Acute) GERD (gastroesophageal reflux disease) (Acute) Pernicious anemia (Acute) Anemia of chronic disease (Acute) Obesity (Acute) Depression (Acute) Asthma (Acute) Hypertension (Acute) Chronic anticoagulation (Acute) Afib (Acute) Vitiligo (Acute) Lichen sclerosus et atrophicus (Acute) Leucopenia (Acute) Past Medical History Medical History HTN (hypertension) Depression GERD (gastroesophageal reflux disease) DVT (deep venous thrombosis) Mitral regurgitation Afib Chronic renal insufficiency Chronic hepatitis C B12 deficiency Hepatitis C Leukopenia Anemia Family History Family History Other No family history of cancer Surgical History Surgical History S/P laparoscopy with lysis of adhesions S/P trigger finger release H/O colonoscopy H/O bilateral breast reduction surgery H/O: hysterectomy H/O gastric bypass Social History Social History Household Members: Children Housing: Apartment Are you a primary school childcare attendant to a significant other at home: No Do you presently have visiting nurse or other home services: No Alcohol intake: never Patient Tobacco Use Status: Never used Tobacco Use of substances other than those prescribed or required for medical reasons: No Are you DNR?: No Advance Directives: No Advance Directives Information Provided: Yes Advance Directives on File: No Recently lost weight without trying: No Nutrition Risks: No Nutritional Risk Patient : No service: No Current occupational status: unemployed Sexual orientation: Straight/Heterosexual Gender identity: Female Meds Allergies Allergy/AdvReac Type Severity Reaction Status Date / Time No Known Allergies Allergy Verified 07/12/24 10:48 Home Medications ?Medication ?Instructions ?Recorded ?Confirmed ?Last Taken ?Type amlodipine 5 mg tablet 1 tab PO DAILY 06/16/20 07/10/24 07/12/24 History apixaban 5 mg tablet (Eliquis) 1 tab PO BID 06/16/20 07/10/24 07/07/24 History bupropion HCl 100 mg tablet,12 hr 1 tab PO QAM 06/16/20 07/10/24 Unknown History sustained-release cyanocobalamin (vitamin B-12) 1,000 mcg QMONTH 06/16/20 07/10/24 Unknown History 1,000 mcg/mL injection syringe gabapentin 300 mg capsule 300 mg PO BID 06/16/20 07/10/24 07/12/24 History metoprolol succinate 25 mg 25 mg PO BID 06/16/20 07/10/24 07/12/24 History tablet,extended release 24 hr atorvastatin 20 mg tablet 20 mg PO DAILY 11/02/21 07/10/24 Unknown History trazodone 150 mg tablet 150 mg PO BEDTIME PRN Anxiety 11/02/21 07/10/24 Unknown History oxycodone-acetaminophen 5 mg-325 1 tab PO BID PRN Pain 12/30/23 07/10/24 Unknown History mg tablet sennosides 8.6 mg tablet (senna) 17.2 mg PO DAILY 12/30/23 07/10/24 Unknown History budesonide-formoterol HFA 160 1 inh inhalation BID 07/10/24 07/10/24 Unknown History mcg-4.5 mcg/actuation aerosol inhaler (Symbicort) fluoxetine 20 mg capsule 40 mg PO DAILY 07/10/24 07/10/24 Unknown History fluticasone propionate 44 1 inh inhalation BID 07/10/24 07/10/24 Unknown History mcg/actuation HFA aerosol inhaler Exam Height,Weight and Vital Signs: Height 5 ft 3 in Weight 92.079 kg Pertinent Lab Results Pertinent Lab Results: Laboratory Tests 05/21/24 10:00 WBC 7.0 Hgb 12.1 Hct 37.9 Plt Count 275 Sodium 139 Potassium 4.1 Chloride 105 Carbon Dioxide 26 BUN 17 H Creatinine 0.96 Assessment and Plan Assessment Anesthesia Assessment: Chart Reviewed Documented by User: Marietta Gagnon MD 07/12/24 13:59 HPI - Anesthesia Eval Consult details Narrative: 69yo F for Colonoscopy. Patient also having EGD Eliquis for afib. Last dose of eliquis 07/07/24 Hx DVT PMFSH Past Medical History Medical History HTN (hypertension) Depression GERD (gastroesophageal reflux disease) DVT (deep venous thrombosis) Mitral regurgitation Afib Chronic renal insufficiency Chronic hepatitis C B12 deficiency Hepatitis C Leukopenia Anemia Family History Family History Other No family history of cancer Family history of problems with anesthesia: No Surgical History Surgical History S/P laparoscopy with lysis of adhesions S/P trigger finger release H/O colonoscopy H/O bilateral breast reduction surgery H/O: hysterectomy H/O gastric bypass History of Problems with Anesthesia: No Social History Social History Household Members: Children Housing: Apartment Are you a primary school childcare attendant to a significant other at home: No Do you presently have visiting nurse or other home services: No Alcohol intake: never Patient Tobacco Use Status: Never used Tobacco Use of substances other than those prescribed or required for medical reasons: No Are you DNR?: No Advance Directives: No Advance Directives Information Provided: Yes Advance Directives on File: No Recently lost weight without trying: No Nutrition Risks: No Nutritional Risk Patient : No service: No Current occupational status: unemployed Sexual orientation: Straight/Heterosexual Gender identity: Female Meds Allergies Allergy/AdvReac Type Severity Reaction Status Date / Time No Known Allergies Allergy Verified 07/12/24 10:48 Home Medications ?Medication ?Instructions ?Recorded ?Confirmed ?Last Taken ?Type amlodipine 5 mg tablet 1 tab PO DAILY 06/16/20 07/10/24 07/12/24 History apixaban 5 mg tablet (Eliquis) 1 tab PO BID 06/16/20 07/10/24 07/07/24 History bupropion HCl 100 mg tablet,12 hr 1 tab PO QAM 06/16/20 07/10/24 Unknown History sustained-release cyanocobalamin (vitamin B-12) 1,000 mcg QMONTH 06/16/20 07/10/24 Unknown History 1,000 mcg/mL injection syringe gabapentin 300 mg capsule 300 mg PO BID 06/16/20 07/10/24 07/12/24 History metoprolol succinate 25 mg 25 mg PO BID 06/16/20 07/10/24 07/12/24 History tablet,extended release 24 hr atorvastatin 20 mg tablet 20 mg PO DAILY 11/02/21 07/10/24 Unknown History trazodone 150 mg tablet 150 mg PO BEDTIME PRN Anxiety 11/02/21 07/10/24 Unknown History oxycodone-acetaminophen 5 mg-325 1 tab PO BID PRN Pain 12/30/23 07/10/24 Unknown History mg tablet sennosides 8.6 mg tablet (senna) 17.2 mg PO DAILY 12/30/23 07/10/24 Unknown History budesonide-formoterol HFA 160 1 inh inhalation BID 07/10/24 07/10/24 Unknown History mcg-4.5 mcg/actuation aerosol inhaler (Symbicort) fluoxetine 20 mg capsule 40 mg PO DAILY 07/10/24 07/10/24 Unknown History fluticasone propionate 44 1 inh inhalation BID 07/10/24 07/10/24 Unknown History mcg/actuation HFA aerosol inhaler Exam Height,Weight and Vital Signs: Height 5 ft 3 in Weight 92.079 kg Vital Signs Temp Pulse Resp BP Pulse Ox O2 Del Method 07/12/24 11:06 97.9 F 45 L 16 149/65 H 97 Room Air Pertinent Lab Results Pertinent Lab Results: Laboratory Tests 05/21/24 10:00 WBC 7.0 Hgb 12.1 Hct 37.9 Plt Count 275 Sodium 139 Potassium 4.1 Chloride 105 Carbon Dioxide 26 BUN 17 H Creatinine 0.96 Airway Mallampati Class: III TM Dist: >3cm Neck ROM: Full Partial: Upper Loose/Missing/Broken Teeth: Yes (Denies broken, loose teeth) Heart: RRR + murmur Lungs: CTAB Assessment and Plan Assessment Anesthesia Assessment: Anesthesia Plan Discussed and Chart Reviewed Final Anesthetic Review Family History of Problems with Anesthesia: No History of Problems with Anesthesia: No NPO: Yes ASA Class: III Final Preanesthetic Review: No Changes in Pt Med Stat, Meds/Allgs Chart Reviewed, Consent Obtained/Reviewed and Anes Risks/Benef Reviewed Patient Risk: Intermediate Procedure Risk: Low Assessment/Block/Sedation in SS: Assess/Block/Sedation-SS Anesthetic Plan Anesthetic Plan: TIVA Disposition: Standard PACU
[2024-07-12 10:40] VITALS: BMI 35.8
--- NOTE | 2024-07-12 10:55 | MHC.SHP ---
Pre-Procedural Eval Section A - 24 Hr Update-Section A only Date of Service: 07/12/24 Section B - Complete if H&P > 30 days Chief Complaint: GERD, positive cologuard Details of Present Illness: Chronic hepatitis C B12 deficiency Hepatitis C Leukopenia Anemia Surgical History S/P laparoscopy with lysis of adhesions S/P trigger finger release H/O colonoscopy H/O bilateral breast reduction surgery H/O: hysterectomy H/O gastric bypass Allergies: Allergies Allergy/AdvReac Type Severity Reaction Status Date / Time No Known Allergies Allergy Verified 07/12/24 10:48 Review of Systems Review of Systems Comment: Ten point ROS negative Exam Exam Comment: Gen appear: No acute distress HEENT: no icterus Chest: No overt resp distress Abd: soft, nontender, nondistended Psych: Stable affect, answering questions appropriately Neuro: A/Ox3 noted to move all extremities spontaneously Ext: no peripheral edema Plan Diagnosis/Plan: Unchanged I have reviewed the history and physical and performed a pertinent physical examination on my patient. No changes have occurred unless specified. Time Spent With Patient Time: Total time managing care of this patient today ____ minutes.
[2024-07-12 11:06] VITALS: BP 149/65; PULSE 45; RESP 16; TEMP 36.6; O2SAT 97
[2024-07-12] MEDS: Lactated Ringers 1,000 ML 100 ML IVCONT (11:14)
--- NOTE | 2024-07-12 12:30 | P.OPN-COLO_ITS ---
Colonoscopy Operative Note Operative Note Date of Service: 07/12/24 Narrative: Procedure: Upper endoscopy and colonoscopy Indication: Abd pain, positive cologuard Endoscopist: Edilia Webber MD Anesthesia Provider: Marietta Gagnon MD Anesthesia type: MAC Instrument: [id number] and [id number]-[id number] EGD Procedure:?? The procedure, indications, preparation and potential complications were reviewed with the patient with the help of a milliner helper, who indicated understanding and gave written informed consent to proceed. The endoscope was introduced through the mouth, and advanced to the 2nd part of the duodenum. The mucosa was carefully examined on slow withdrawal of the endoscope. The patient tolerated the procedure well. There were no immediate complications.? EGD Findings:? * Esophagus:? Normal esophageal mucosa was noted. The Z-line was at 32 cm. There was a small hiatal hernia with the diaphragmatic pinch at 35 cm. * Stomach:? Small tubular stomach with gastric bypass anatomy. The GJ anastomosis is at 40 cm and estimated to be 20 mm wide. Retroflexion could easily be performed in the cardia. Random cold forceps biopsies were taken from the gastric pouch. * Jejunum:?Normal mucosa noted in blind stump and the alimentary limb. Cold forceps biopsies were taken for histology. Colonoscopy Procedure:? The patient was then turned for the colonoscopy. A digital rectal exam was performed which was normal.? A distal attachment cap was affixed to the tip of the scope and the colonoscope was then inserted through the anus and advanced through the colon and advanced to the cecum at cm and terminal ileum.? Appendiceal orifice and ileocecal valve were identified. Mucosa was carefully examined under high definition white light as the instrument was slowly withdrawn in a retrograde panoramic fashion. Retroflexion was performed in rectum. The procedure was not difficult. The quality of the prep was BBPS: 3+3+3 = excellent Withdrawal time 9 minutes Limitations: No limitations Findings: Mucosa: Normal colon and terminal ileum mucosa. Protruding lesions: * Small internal hemorrhoids without stigmata of recent bleeding. Impression: 1. Normal esophagus (biopsy) 2. Gastric bypass anatomy (biopsy) 3. Normal jejunum (biopsy) 4. Normal colon and terminal ileum mucosa (biopsy) 5. Internal hemorrhoids Recommendations:?? * Follow-up path results * Avoid NSAIDs * H Pylori treatment if biopsies + * Repeat colonoscopy for CRC screening in 10 years. * OK to resume Eliquis
[2024-07-12 12:32] VITALS: BP 122/66; PULSE 66; RESP 18; TEMP 36.1; O2SAT 96
[2024-07-12 12:47] VITALS: BP 123/63; PULSE 63; RESP 16; TEMP 36.4; O2SAT 96
== END 2024-07-12 13:28 | disposition home or self-care (01) ==
PROVIDERS: PCP Internal Medicine; Visit Provider Internal Medicine
PROC: (CPT 45378; principal; 2024-07-12 12:30)
DX: R19.5 Other fecal abnormalities (principal); K64.8 Other hemorrhoids; K21.9 Gastro-esophageal reflux disease without esophagitis; R10.10 Upper abdominal pain, unspecified; K44.9 Diaphragmatic hernia without obstruction or gangrene; I12.9 Hypertensive chronic kidney disease with stage 1 through stage 4 chronic kidney disease, or unspecified chronic kidney disease; N18.30 Chronic kidney disease, stage 3 unspecified; B19.20 Unspecified viral hepatitis C without hepatic coma; I48.91 Unspecified atrial fibrillation; J45.909 Unspecified asthma, uncomplicated; Z98.0 Intestinal bypass and anastomosis status; Z86.718 Personal history of other venous thrombosis and embolism; Z79.01 Long term (current) use of anticoagulants; Z79.899 Other long term (current) drug therapy; Z88.8 Allergy status to other drugs, medicaments and biological substances; Z98.84 Bariatric surgery status; Z56.0 Unemployment, unspecified
CPT/HCPCS: 45378; 43239; 88305; 88313; 88342; J2003; J2704

== ENCOUNTER → 2024-07-12 10:21 | Outpatient (BNV) | payer OTHER, SELFPAY | PROVIDERS: PCP Internal Medicine; Visit Provider Internal Medicine | DX: Z12.11 Encounter for screening for malignant neoplasm of colon (principal); R19.5 Other fecal abnormalities; K64.8 Other hemorrhoids; K21.9 Gastro-esophageal reflux disease without esophagitis; Z98.84 Bariatric surgery status | CPT/HCPCS: 43239; G0121 ==

== ENCOUNTER 2024-09-14 10:55 | Outpatient (REF) | payer OTHER, SELFPAY ==
[2024-09-14 11:09] LABS: MANUAL DIFF FLAG NO
[2024-09-14 12:24] LABS: Basophils Absolute Auto 0.1 X10*3/uL (0.0-0.2); Basophils Percent Auto 0.8 % (0-2); Eosinophils Absolute Auto 0.2 X10*3/uL (0.0-0.4); Eosinophils Percent Auto 3.3 % (0-4); Hematocrit 40.5 % (37.0-47.0); Hemoglobin 12.9 g/dl (12.0-16.0); Imm Gran Abs Auto 0.01 X10*3/uL (0.00-0.03); Imm Gran Pct Auto 0.2 % (0.0-0.4); Lymphocytes Absolute Auto 1.9 X10*3/uL (1.2-4.9); Lymphocytes Percent Auto 28.9 % (20-40); Mean Corpuscular HGB Conc 31.9 g/dl (31.0-35.0); Mean Corpuscular Hemoglobin 29.5 pg (27.0-33.0); Mean Corpuscular Volume 92.5 fL (80.0-98.0); Mean Platelet Volume 10.3 fL (9.4-12.3); Monocytes Absolute Auto 0.5 X10*3/uL (0.1-1.2); Monocytes Percent Auto 7.4 % (2-11); Neutrophils Absolute Auto 3.9 x10*3/uL (2.0-8.3); Neutrophils Percent Auto 59.4 % (45-73); Platelet Count 261 X10*3/uL (160-400); Red Blood Count 4.38 X10*6/uL (4.20-5.50); Red Cell Distribution Width 13.8 % (11.0-16.0); White Blood Count 6.6 X10*3/uL (4.8-10.8)
--- OUTSIDE RECORDS SUMMARY | 2024-09-14 12:57 | XMS_ITS ---
Author Organization [facility] Address [address] [place] [address] Care Team Providers Care Adjunct Spanish Instructor Name Role Phone Laura Morgan Primary Care Provider Unavailab Rich Mays Unavailable [phone] Jocelyn Weiner Unavailable Unavailable REASON FOR VISIT ov appt Encounters Encounter Location Date Provider Diagnosis [facility] [address] [place] [address] 04/05/2024 Rich Mills PLAN OF TREATMENT Next Appt Details Provider Name:Rich Mills , 10/04/2024 10:40:00 AM, [address], [address], [place], [address],
--- OUTSIDE RECORDS SUMMARY | 2024-09-14 12:57 | XMS_ITS | Patient Health Record ---
Author Organization [facility] Address [address] [place] [address] Care Team Providers Care Care Transition Coordinator Name Role Phone Grahamshady Laura Primary Care Provider Unavailab Rich Mays Unavailable [phone] Jocelyn Weiner Unavailable Unavailable REASON FOR REFERRAL No Information SOCIAL HISTORY Sex Assigned At : Social History Observation Description Sex Assigned At Unknown Encounters Encounter Location Date Provider Diagnosis [facility] [address] [place] [address] 04/05/2024 Rich Mills [facility] [address] [place] [address] 05/22/2024 Rich Mills [facility] [address] [place] [address] 04/05/2024 Rich Mills [facility] [address] [place] [address] 05/22/2024 Rich Mills PLAN OF TREATMENT Next Appt Details Provider Name:Rich Mills , 10/04/2024 10:40:00 AM, [address], [address], [place], [address], Insurance Providers Payer Name Payer Address Payer Phone Subscriber Number Group Number Insured Name Patient Relationship to Insured Coverage Start Date Coverage End Date [facility] [address] [place] [id number] Self - patient is the insured
--- OUTSIDE RECORDS SUMMARY | 2024-09-14 12:57 | XMS_ITS ---
Author Organization [facility] Address [address] [place] [address] Care Team Providers Care Paper Latcher Name Role Phone Laura Morgan Primary Care Provider Unavailab Rich Mays Unavailable [phone] Jocelyn Weiner Unavailable Unavailable Encounters Encounter Location Date Provider Diagnosis [facility] [address] [place] [address] 05/22/2024 Rich Mills PLAN OF TREATMENT Next Appt Details Provider Name:Rich Mills , 10/04/2024 10:40:00 AM, [address], [address], [place], [address],
--- OUTSIDE RECORDS SUMMARY | 2024-09-14 12:57 | XMS_ITS | Clinical Summary ---
Author Organization [facility] Address [address] [place] [address] Care Team Providers Care Agricultural Pilot Name Role Phone Laura Morgan MD Primary Care Provider [phone] Allergies No known active allergies Medications Medication Sig Dispensed Refills Start Date End Date Status METOPROLOL TARTRATE ORAL Take by mouth. Active FLUoxetine (PROzac) 20 mg capsule Take 20 mg by mouth daily. Active lisinopril-hydroCHLORO thiazide (PRINZIDE,ZESTORETIC) 20-25 mg per tablet Take 1 tablet by mouth daily. Active amLODIPine (NORVASC) 10 mg tablet Take 10 mg by mouth daily. Active albuterol HFA (PROAIR HFA ; PROVENTIL HFA ; VENTOLIN HFA) 90 mcg/actuation inhaler Inhale 2 Puffs into the lungs every 4 hours as needed. Active apixaban (ELIQUIS) 2.5 mg tablet Take by mouth. Active naproxen (NAPROSYN) 500 mg tablet Take 500 mg by mouth 2 times daily (with meals). prn Active omeprazole (PRILOSEC) 20 mg tablet,delayed release (DR/EC) Take 20 mg by mouth daily. Active traZODone (DESYREL) 50 mg tablet Take 50 mg by mouth at bedtime. Active Active Problems Problem Noted Date Diagnosed Date Depression 03/21/2018 DJD (degenerative joint disease) 03/21/2018 Overview (07/28/2024): Right knee GERD (gastroesophageal reflux disease) 8 Hypertension 03/21/2018 Obesity, Class I, BMI 30.0-34.9 (see actual BMI) 01/17/2018 Abdominal pannus 12/05/2017 Intertrigo 12/05/2017 Surgical History Surgery Date Site/Laterality Comments BREAST REDUCTION Bilateral PROCEDURE: TX BREAST REDUCTION OTHER SURGICAL HISTORY PROCEDURE: HISTORY OTHER; COMMENT: lap Chencho-en-Y gastric bypass Medical History Medical History Date Comments Abdominal pannus 12/05/2017 DX:Abdominal pa nnus Intertrigo 12/05/2017 DX:Intertrigo Obesity, Class I, BMI 30.0-3 4.9 (see actual BMI) 01/17/2018 DX:Obesity, Class I, BMI 30. 0-34.9 (see actual BMI) Hypertension 03/21/2018 DX:Hypertension Depression 03/21/2018 DX:Depression History of bariatric surgery 03/21/2018 DX: History of bariatric surgery; COMMENT: Lap Chencho-en-Y DJD (degenerative joint disease) 03/21/2018 DX:DJD (degenerative joint disease); COMMENT: Right knee GERD (gastroesophageal reflux disease) 03/21/2018 DX:GERD (gastroesophageal reflux disease) Social History Tobacco Use Types Packs/Day Years Used Date Smoking Tobacco: Never Smokeless Tobacco: Never Alcohol Use Standard Drinks/Week Comments No 0 (1 standard drink = 0.6 oz pur e alcohol) Sex and Gender Information Value Date Recorded Sex Assigned at Not on file Gender Identity Not on file Sexual Orientation Not on file Obstetrics History Plan of Treatment Upcoming Encounters Date Type Department Care Team (Late st Contact Info) Description 10/25/2024 11:00 AM EST Office Visit Bariatric Surgery - [place] [address] [facility] [address] [place] [address] Reema Lazaro MD [address] [facility] [address] [place] [address] Health Maintenance Due Date Last Done Comments Breast Cancer Screening 1955 DTaP,Tdap,and Td Vaccines (1 - Tdap) 1973 Zoster Vaccines (1 of 2) 2004 Pneumococcal Vaccine: 65+ Ye ars (1 of 1 - PCV) 2019 COVID-19 Vaccine ( - 2023-2 5 season) 2024 Influenza Vaccine (#1) 2024 Cholesterol Screening (Lipid Panel) 07/28/2024 Colorectal Cancer Screening: Colonoscopy 07/28/2024 Depression Screening 07/28/2024 Falls Risk Assessment 07/28/2024 Hepatitis C Screening 07/28/2024 Hypertension/CHF/CAD Annual BMP Blood Test 07/28/2024 Osteoporosis Screening (Bone Density Screening) 07/28/2024 Social Influencers of Health Screening 07/28/2024 RSV Immunization Patients 60 + Years Old (1 - 1-dose 75+ series) 2029 HIB Vaccines Aged Out No longer eligi ble based on patient's age to complete this topic HPV Vaccines Aged Out No longer eligi ble based on patient's age to complete this topic Hepatitis A Vaccines Aged Out No long er eligible based on patient's age to complete this topic Hepatitis B Vaccines Aged Out No long er eligible based on patient's age to complete this topic IPV Vaccines Aged Out No longer eligi ble based on patient's age to complete this topic MMR Vaccines Aged Out No longer eligi ble based on patient's age to complete this topic Meningococcal ACWY Vaccine Aged Out N o longer eligible based on patient's age to complete this topic RSV Immunization Patients Un adan 20 months Aged Out No longer eligible b ased on patient's age to complete this topic Varicella Vaccines Aged Out No longer eligible based on patient's age to complete this topic Care Teams Agricultural Pilot Relationship Specialty Start Date End Date Laura Morgan MD [address] [facility] [address] [place], [place] PCP - General Internal Medicine 06/21/17
--- OUTSIDE RECORDS SUMMARY | 2024-09-14 12:57 | XMS_ITS ---
Author Organization [facility] Address [address] [place] [address] Care Team Providers Care Cooler Servicer Name Role Phone Laura Morgan Primary Care Provider Unavailab Rich Mays Unavailable [phone] Jocelyn Weiner Unavailable Unavailable REASON FOR VISIT Patient presents today for a discuss colonoscopy Encounters Encounter Location Date Provider Diagnosis [facility] [address] [facility] [address] [place] [address] 05/22/2024 Rich Mills PLAN OF TREATMENT Next Appt Details Provider Name:Rich Mills , 10/04/2024 10:40:00 AM, [address], [address], [place], [address],
[2024-09-14 14:01] LABS: Alanine Aminotransferase 49 U/L (0-31); Anion Gap 10 (12-20); Aspartate Amino Transferase 24 U/L (5-31); Bilirubin Total 0.7 mg/dL (0.0-1.0); Blood Urea Nitrogen 20 mg/dL (9-16); Calcium 9.2 mg/dL (8.4-10.2); Carbon Dioxide 27 mmol/L (22-29); Chloride 107 mmol/L (96-108); Estimated Glomerular Filt Rate > 60; Glucose Random 129 mg/dL (60-115); Sodium 140 mmol/L (135-145); Total Protein 7.9 g/dL (6.5-8.0)
[2024-09-14 14:18] LABS: Alkaline Phosphatase 128 U/L (39-117)
== END 2024-09-14 10:56 | disposition home or self-care (01) ==
LOC: HO.LAB 10:55
PROVIDERS: PCP Internal Medicine; Visit Provider Internal Medicine
DX: E78.00 Pure hypercholesterolemia, unspecified (principal); I10 Essential (primary) hypertension; I48.91 Unspecified atrial fibrillation; R74.01 Elevation of levels of liver transaminase levels; Z79.01 Long term (current) use of anticoagulants
CPT/HCPCS: 36415; 80053; 85025

== ENCOUNTER 2024-12-26 11:17 | Outpatient (REF) | payer OTHER, SELFPAY ==
[2024-12-26 12:02] LABS: Estimated Average Glucose 126 mg/dL; Hemoglobin A1C 133.2189 umol/L; Total Hemoglobin (HGBA1C) 3183.3341 umol/L
[2024-12-26 12:25] LABS: Alanine Aminotransferase 73 U/L (0-31); Albumin Level 3.9 g/dL (3.5-5.0); Alkaline Phosphatase 114 U/L (39-117); Anion Gap 10 (12-20); Aspartate Amino Transferase 33 U/L (5-31); Blood Urea Nitrogen 21 mg/dL (9-16); Calcium 8.9 mg/dL (8.4-10.2); Carbon Dioxide 26 mmol/L (22-29); Chloride 108 mmol/L (96-108); Estimated Glomerular Filt Rate > 60; Glucose Random 76 mg/dL (60-115); Potassium 4.3 mmol/L (3.3-5.1); Sodium 140 mmol/L (135-145); Total Protein 7.1 g/dL (6.5-8.0)
--- OUTSIDE RECORDS SUMMARY | 2024-12-26 12:45 | XMS_ITS ---
Author Organization [facility] Address [address] [place] [address] Care Team Providers Care Able Bodied Tankerman Name Role Phone Laura Morgan Primary Care Provider Unavailab Rich Mays Unavailable [phone] Jocelyn Weiner Unavailable Unavailable Encounters Encounter Location Date Provider Diagnosis [facility] [address] [place] [address] 05/22/2024 Rich Mills Plan Of Treatment No Information Progress Notes * GABRIELLE LANEADOB:1955 (69 yo F)Acc No.[id number]:05/22/2024 Patient:?JHONATAN LANE :1955???Age:69 Y???Sex:Female Address:[address] [place] [address] * true * Date:? Generated for Cedric torres/Ankita/eTransmitting on:?12/26/2024 12:45 PM EDT
--- OUTSIDE RECORDS SUMMARY | 2024-12-26 12:45 | XMS_ITS | Patient Health Record ---
Author Organization [facility] Address [address] [place] [address] Care Team Providers Care Investigation Clerk Name Role Phone Laura Morgan Primary Care Provider Unavailab Rich Mays Unavailable [phone] Jocelyn Weiner Unavailable Unavailable Allergies No Known Allergies Reason For Referral No Information Medications Medication SIG (Take, Route, Frequency, Duration) Notes Start Date End Date Status Losartan Potassium 50 MG TOME JORGE TABLET A VIA ORAL CADA ZAID Oral for 90 Active Metoprolol Tartrate 25 MG Oral for 45 Active Atorvastatin Calcium 40 MG Oral for 90 Active FLUoxetine HCl 20 MG Oral for 30 Active buPROPion HCl ER (SR) 200 MG Oral for 30 Active Omeprazole 20 MG Oral for 30 A ctive Gabapentin 300 MG TOME JORGE CAPSULA VIA ORAL GEOVANNI VECES AL ZAID Oral for 90 Active amLODIPine Besylate 10 MG Oral for 90 Active Eliquis 5 MG TOME JORGE TABLETA VIA ORAL DOS VECES AL ZAID Oral for 90 Active traZODone HCl 150 MG Oral for 30 Active oxyCODONE-Acetaminophen 5-325 MG Oral for 30 Active Baclofen 5 MG Oral for 90 Acti ve Social History Tobacco Use: Social History Observation Description Date Details (start date - stop date) Never Smoker NA - NA Tobacco Use/Smoking Question Answer Notes Patient is a nonsmoker Alcohol Screen Question Answer Notes Did you have a drink containing alcohol in the p ast year? No Points 0 Interpretation Negative Encounters Encounter Location Date Provider Diagnosis [facility] [address] [place] [address] 04/05/2024 Rich Mills [facility] [address] [place] [address] 05/22/2024 Rich Mills [facility] [address] [place] [address] 10/04/2024 Rich Mills Plan Of Treatment No Information Insurance Providers Payer Name Payer Address Payer Phone Subscriber Number Group Number Insured Name Patient Relationship to Insured Coverage Start Date Coverage End Date [facility] [address] [place] [id number] Self - patient is the insured Medical (General) History Medical History History ICD Code spinal stenosis Gout CKD stage 3 hx of DVT Afib vitamin B12 deficiency hepatitis C Leukopenia hypertension Surgical History Surgery Date(Month/Year) trigger finger release laparoscopy with lysis of adhesions hysterectomy gastric bypass breast reduction surgery
--- OUTSIDE RECORDS SUMMARY | 2024-12-26 12:46 | XMS_ITS ---
Author Organization [facility] Address [address] [place] [address] Care Team Providers Care Supervisor Cereal Name Role Phone Emilymesfin Laura Primary Care Provider Unavailab Rich Mays Unavailable [phone] Jocelyn Weiner Unavailable Unavailable Allergies No Known [...] Negative Encounters Encounter Location Date Provider Diagnosis [facility] [address] [place] [address] 10/04/2024 Rich Mills Plan Of Treatment No Information Progress Notes * XAVIER LANEB:1955 (69 yo F)Acc No.[id number]:10/04/2024 Progress Notes Patient:JHONATAN NIEVES Provider:?Rich Mills MD :1955???Age:69 Y???Sex:Female D ate:10/04/2024 Address:[address] [place], [place] [address] Pcp:Laura Morgan Subjective: * Chief Complaints: * ???1. Patient presents today for a discuss colonoscopy. * Medical History:?Spinal sten osis, Gout, CKD stage 3 , hx of DVT , Afib, vitamin B12 deficiency, hepatitis C, Leukopenia, Hypertension. * Surgical History:?breast red uction surgery , gastric bypass , hysterectomy , laparoscopy with lysis of adhesions , trigger finger release . * Family History:?Father: dece ased.?Mother: .? * Social History:?Tobacco Use:?Tobacco Use/Smoking?Patient is a?nonsmoker.?Drugs/Alcohol:?Alcohol Screen?Did you have a drink containing alcohol in the past year??No,?Points?0,?Interpretation?Negative.? * Medications:?Taking oxyCODON E-Acetaminophen 5-325 MG Tablet Oral , Taking traZODone [...] reviewed and reconciled with the patient * Allergies:?N.K.D.A. Objective: * Vitals:? Assessment: Plan: * Treatment: * * The named appointment provid er may or may not be the originator of this progress note, and it is not deemed complete until electronically signed by the appointment provider. Sign off status: Pending * Provider:?Rich Mills MD Date:? 025 Generated for Cedric torres/Ankita/Sally on:?12/26/2024 12:45 PM EDT
--- OUTSIDE RECORDS SUMMARY | 2024-12-26 12:46 | XMS_ITS ---
Author Organization [facility] Address [address] [place] [address] Care Team Providers Care Reinforced Ironworker Name Role Phone Laura Morgan Primary Care Provider Unavailab Rich Mays Unavailable [phone] Jocelyn Weiner Unavailable Unavailable REASON FOR VISIT appt was cancelled due to pt has seen previous GI Encounters Encounter Location Date Provider Diagnosis [facility] [address] [place] [address] 10/04/2024 Rich Mills Plan Of Treatment No Information Progress Notes * GABRIELLE LANEADOB:1955 (69 yo F)Acc No.[id number]:10/04/2024 Patient:?JHONATAN LANE :1955???Age:69 Y???Sex:Female Address:[address] [place] [address] * true * Date:? Generated for Griseli melissa/Ankita/eTransmitting on:?12/26/2024 12:45 PM EDT
== END 2024-12-26 11:18 | disposition home or self-care (01) ==
LOC: HO.LAB 11:17
PROVIDERS: PCP Internal Medicine; Visit Provider Internal Medicine
DX: E78.00 Pure hypercholesterolemia, unspecified (principal); I10 Essential (primary) hypertension; I48.91 Unspecified atrial fibrillation; R73.01 Impaired fasting glucose; R74.01 Elevation of levels of liver transaminase levels; Z79.01 Long term (current) use of anticoagulants
CPT/HCPCS: 36415; 80053; 83036

== ENCOUNTER 2025-02-04 10:32 | Outpatient (REF) | payer OTHER, SELFPAY ==
--- OUTSIDE RECORDS SUMMARY | 2025-02-04 11:49 | XMS_ITS ---
Author Organization [facility] Address [address] [place] [address] Care Team Providers Care It Applications Developer Name Role Phone Laura Morgan Primary Care Provider Unavailab Rich Mays Unavailable [phone] Jocelyn Weiner Unavailable Unavailable Encounters Encounter Location Date Provider Diagnosis [facility] [address] [place] [address] 05/22/2024 Rich Mills Plan Of Treatment No Information Progress Notes * GABRIELLE LANEADOB:1955 (69 yo F)Acc No.[id number]:05/22/2024 Patient:?JHONATAN LANE :1955???Age:69 Y???Sex:Female Address:[address] [place] [address] * true * Date:? Generated for Cedric torres/Ankita/eTransmitting on:?02/04/2025 11:48 AM EDT
== END 2025-02-04 10:33 | disposition home or self-care (01) ==
LOC: HO.MAMMO 10:32
PROVIDERS: PCP Internal Medicine; Visit Provider Internal Medicine
DX: Z12.31 Encounter for screening mammogram for malignant neoplasm of breast (principal)
CPT/HCPCS: 77063; 77067

== ENCOUNTER → 2025-02-04 10:45 | Outpatient (BNV) | payer OTHER, SELFPAY | PROVIDERS: PCP Internal Medicine; Visit Provider Internal Medicine | DX: Z12.31 Encounter for screening mammogram for malignant neoplasm of breast (principal) | CPT/HCPCS: 77063; 77067 ==

== ENCOUNTER 2025-05-13 11:10 | Outpatient (REF) | payer OTHER, SELFPAY ==
--- OUTSIDE RECORDS SUMMARY | 2024-04-05 05:20 | XMS_ITS ---
Author Organization [facility] Address [address] [place] [id number] Care Team Providers Care Boat Finisher Name Role Phone Laura Morgan Primary Care Provider Unavailab Rich Mays Unavailable [phone] Jocelyn Weiner Unavailable Unavailable REASON FOR VISIT Patient presents today for a screening colonoscopy Encounters Encounter Location Date Provider Diagnosis [facility] [address] [place] [phone] 04/05/2024 Rich Mills Plan Of Treatment No Information Progress Notes * GABRIELLE LANEADOB:1955 (70 yo F)Acc No.[id number]:04/05/2024 Progress Notes Patient: JHONATAN ROJAS Provider: Mike Mills MD :1955 A ge:69 Y S ex:Female Date:04/05/2024 Address:[address] [place], [place] [id number] Pcp:Laura Morgan Subjective: * Chief Complaints: * 1 . Patient presents today for a screening colonoscopy. * Medical History: Objective: * Vitals: Assessment: Plan: * Treatment: * * The named appointment provid er may or may not be the originator of this progress note, and it is not deemed complete until electronically signed by the appointment provider. Sign off status: Pending * Provider: Mike Mills MD Date: 0 04/05/2024 Generated for Griseli ng/Faxing/eTransmitting on: 05/13/2025 01:50 PM EDT
--- OUTSIDE RECORDS SUMMARY | 2024-05-22 06:20 | XMS_ITS ---
Author Organization [facility] Address [address] [place] [phone] Care Team Providers Care Electrophysiology Nurse Practitioner Name Role Phone Laura Morgan Primary Care Provider Unavailab Rich Mays Unavailable [phone] Jocelyn Weiner Unavailable Unavailable REASON FOR VISIT Patient presents today for a discuss colonoscopy Encounters Encounter Location Date Provider Diagnosis [facility] [address] [place] [phone] 05/22/2024 Rich Mills Plan Of Treatment No Information Progress Notes * GABRIELLE LANEADOB:1955 (70 yo F)Acc No.[id number]:05/22/2024 Progress Notes Patient: JHONATAN ROJAS Provider: Mike Mills MD :1955 A ge:69 Y S ex:Female Date:05/22/2024 Address:[address] [place], [place] [phone] Pcp:Laura Morgan Subjective: * Chief Complaints: * 1 . Patient presents today for a discuss colonoscopy. * Medical History: Objective: * Vitals: Assessment: Plan: * Treatment: * * The named appointment provid er may or may not be the originator of this progress note, and it is not deemed complete until electronically signed by the appointment provider. Sign off status: Pending * Provider: Mike Mills MD Date: 1 Generated for Printi ng/Faxing/eTransmitting on: 0 05/13/2025 01:49 PM EDT
--- OUTSIDE RECORDS SUMMARY | 2024-10-04 07:00 | XMS_ITS ---
Author Organization [facility] Address [address] [place] [address] Care Team Providers Care Social Worker Aide Name Role Phone Emilymesfin Laura Primary Care Provider Unavailab Rich Mays Unavailable [phone] Jocelyn Weiner Unavailable Unavailable Allergies No Known Allergies REASON FOR VISIT Patient presents today for a discuss colonoscopy Medications Medication SIG (Take, Route, Frequency, Duration) Notes Start Date End Date Status Losartan Potassium 50 MG TOME JORGE TABLET A VIA ORAL CADA ZAID Oral for 90 Active Atorvastatin Calcium 40 MG Oral for 90 Active amLODIPine Besylate 10 MG Oral for 90 Active Eliquis 5 MG TOME JORGE TABLETA VIA ORAL DOS VECES AL ZAID Oral for 90 Active Baclofen 5 MG Oral for 90 Acti ve Metoprolol Tartrate 25 MG Oral for 45 Active FLUoxetine HCl 20 MG Oral for 30 Active buPROPion HCl ER (SR) 200 MG Oral for 30 Active Omeprazole 20 MG Oral for 30 A ctive Gabapentin 300 MG TOME JORGE CAPSULA VIA ORAL GEOVANNI VECES AL ZAID Oral for 90 Active traZODone HCl 150 MG Oral for 30 Active oxyCODONE-Acetaminophen 5-325 MG Oral for 30 Active Social History Tobacco Use: Social History Observation Description Date Details (start date - stop date) Never Smoker NA - NA Tobacco Use/Smoking Question Answer Notes Patient is a nonsmoker Alcohol Screen Question Answer Notes Did you have a drink containing alcohol in the p ast year? No Points 0 Interpretation Negative Encounters Encounter Location Date Provider Diagnosis [facility] [address] [place] [address] 10/04/2024 Rihc Mills Plan Of Treatment No Information Progress Notes * XAVIER LANEB:1955 (70 yo F)Acc No.[id number]:10/04/2024 Progress Notes Patient: JHONATAN ROJAS Provider: Mike Mills MD :1955 A ge:69 Y S ex:Female Date:10/04/2024 Address:[address] [place], [place] [id number] Pcp:Laura Morgan Subjective: * Chief Complaints: * 1 . Patient presents today for a discuss colonoscopy. * Medical History: S betty stenosis, Gout, CKD stage 3 , hx of DVT , Afib, vitamin B12 deficiency, hepatitis C, Leukopenia, Hypertension. * Surgical History: b reast reduction surgery , gastric bypass , hysterectomy , laparoscopy with lysis of adhesions , trigger finger release . * Family History: F ather: . M other: . * Social History: T obacco Use: T obacco Use/Smoking P atient is a n onsmoker. D rugs/Alcohol: A lcohol Screen D id you have a drink containing alcohol in the past year? N o, P oints 0 , I nterpretation N egative. * Medications: T aking oxyCODONE-Acetaminophen 5-325 MG Tablet Oral , Taking traZODone HCl 150 MG Tablet Oral , Taking buPROPion HCl ER (SR) 200 MG Tablet Extended Release 12 Hour Oral , Taking FLUoxetine HCl 20 MG Capsule Oral , Taking Gabapentin 300 MG Capsule TOME JORGE CAPSULA VIA ORAL GEOVANNI VECES AL ZAID Oral , Taking Omeprazole 20 MG Capsule Delayed Release Oral , Taking Metoprolol Tartrate 25 MG Tablet Oral , Taking Losartan Potassium 50 MG Tablet TOME JORGE TABLETA VIA ORAL CADA ZAID Oral , Taking Atorvastatin Calcium 40 MG Tablet Oral , Taking Eliquis 5 MG Tablet TOME JORGE TABLETA VIA ORAL DOS VECES AL ZAID Oral , Taking amLODIPine Besylate 10 MG Tablet Oral , Taking Baclofen 5 MG Tablet Oral , Medication List reviewed and reconciled with the patient * Allergies: N .K.D.A. Objective: * Vitals: Assessment: Plan: * Treatment: * * The named appointment provid er may or may not be the originator of this progress note, and it is not deemed complete until electronically signed by the appointment provider. Sign off status: Pending * Provider: iMke Mills MD Date: 0 10/04/2024 Generated for Cedric torres/Ankita/Sally on: 0 05/13/2025 01:49 PM EDT
[2025-05-13 11:55] LABS: Hemoglobin A1C 130.1604 umol/L; Total Hemoglobin (HGBA1C) 3039.6708 umol/L
[2025-05-13 12:44] LABS: Alanine Aminotransferase 56 U/L (0-31); Albumin Level 4.3 g/dL (3.5-5.0); Alkaline Phosphatase 136 U/L (39-117); Anion Gap 8 (12-20); Aspartate Amino Transferase 47 U/L (5-31); Blood Urea Nitrogen 20 mg/dL (9-16); Calcium 9.3 mg/dL (8.4-10.2); Carbon Dioxide 30 mmol/L (22-29); Chloride 106 mmol/L (96-108); Cholesterol 154 mg/dL (<200); Estimated Glomerular Filt Rate > 60; HDL Cholesterol 52 mg/dL (>40); Potassium 4.1 mmol/L (3.3-5.1); Sodium 140 mmol/L (135-145); Total Protein 7.5 g/dL (6.5-8.0); Triglycerides 95 mg/dL (<150)
--- OUTSIDE RECORDS SUMMARY | 2025-05-13 13:49 | XMS_ITS | Encounter Summary ---
Author Organization [facility] Address [address] [facility] [address] [place] [address] Phone Care Team Providers Care Seismograph Supervisor Name Role Phone Laura Morgan MD Primary Care Provider Encounter Details Date Type Department Care Team (Late Contact Info) Description 07/03/2018 Procedure Pass [facility], [address] [address] Social History Tobacco Use Types Packs/Day Years Used Date Smoking Tobacco: Never Smokeless Tobacco: Never Alcohol Use Standard Drinks/Week Comments No 0 (1 standard drink = 0.6 oz pur e alcohol) Comments Unknown Sex and Gender Information Value Date Recorded Sex Assigned at Female 04/06/2018 9:56 AM EDT Legal Sex Female 9:57 PM EDT Gender Identity Female 04/06/2018 9:56 AM EDT Sexual Orientation Straight 04/06/2018 9: 56 AM EDT documented as of this encounter Plan of Treatment Upcoming Encounters Date Type Department Care Team (Late Contact Info) Description 10/23/2025 11:00 AM EST Office Visit [facility] [address] [place] [address] 3rd Floor, [address] [place] [address] Hoang Zavala MD [address] [facility], [address] [place] [address] [email or web address] documented as of this encounter Visit Diagnoses Not on filedocumented in this encounter Additional Health Concerns Infection Onset Date Last Indicated Resolved Time CoV-Exposed Comment:Positive COVID-19 12/17/2020 12/17/2020 12/17/2020 6:0 1 PM EDT CoV-Risk 12/17/2020 12/17/2020 12/17/2020 6:01 PM EDT COVID-19 12/17/2020 12/17/2020 01/07/2021 1:24 AM EDT documented as of this encounter Care Teams Seismograph Supervisor Relationship Specialty Start Date End Date Laura Morgan MD [address] [place] [address] [place] [phone] PCP - General Internal Medicine 04/06/18 documented as of this encounter Additional Source Comments The information contained in this document represents components of the legal health record. It is not the complete legal health record.[facility]
--- OUTSIDE RECORDS SUMMARY | 2025-05-13 13:49 | XMS_ITS | Encounter Summary ---
Author Organization [facility] Address [address] [facility] [address] [place] [address] Phone Care Team Providers Care Awake Overnight Monitor Name Role Phone Laura Morgan MD Primary Care Provider Encounter Details Date Type Department Care Team (Late Contact Info) Description 06/16/2022 Procedure Pass [facility], [address] [address] Social History Tobacco Use Types Packs/Day Years [...] Description 10/23/2025 11:00 AM EST Office Visit [facility] [address] [place] [address] 3rd Floor, [address] [place] [address] Hoang Zavala MD [address] [facility], [address] [place] [address] [email or web address] documented as of this encounter Visit Diagnoses Not on filedocumented in this encounter Care Teams Awake Overnight Monitor Relationship Specialty Start Date End Date Laura Morgan MD [address] [place] [address] [place] [phone] PCP - General Internal Medicine 04/06/18 documented as of this encounter Additional Source Comments The information contained in this document represents components of the legal health record. It is not the complete legal health record.[facility]
--- OUTSIDE RECORDS SUMMARY | 2025-05-13 13:49 | XMS_ITS | Encounter Summary ---
Author Organization [facility] Address [address] [facility] [address] [place] [address] Phone Care Team Providers Care Assistant Director Of Admissions Name Role Phone Laura Morgan MD Primary Care Provider Encounter Details Date Type Department Care Team (Late Contact Info) Description 06/28/2018 Ancillary Orders [facility], X-Ray - [address] [address] Rena Dia, JUDAH [address] [place] [phone] [email or web address] Spondylosis without myelopathy or radiculopathy, lumbar region Social History Tobacco Use Types Packs/Day Years [...] Description 10/23/2025 11:00 AM EST Office Visit [facility] [address] [place] [address] 3rd Floor, [address] [place], [place] [id number] Hoang Zavala MD [address] [facility], [address] [place], [place] [phone] [email or web address] documented as of this encounter Results * XR LUMBOSACRAL SPINE 4 OR MORE VIEWS (06/28/2018 1:14 PM EST) Anatomical Region Laterality Modality L-spine Radiographic Gina ging 06/28/2018 1:22 PM EST Impressions 06/28/2018 1:26 PM EST Mild levoscoliosis, grade 1 spondylolisthesis of L4 and multilevel degenerative disc disease with facet arthropathy. POS - [id number] Narrative 06/28/2018 1:26 PM EST HISTORY: As above. COMPARISON: None. LUMBAR SPINE RADIOGRAPH FINDINGS: 6 obtained. Mild mid lumbar levoscoliosis. Grade 1 spondylolisthesis of L4 measuring 6 mm due to moderate facet arthropathy. No spondylolysis. Moderate L5-S1 facet arthropathy. Mild L4-5 and L5-S1 disc space narrowing. Multilevel endplate spurring. No compression deformities or destructive bone lesions. Incidental pelvic phleboliths. There are small nodular calcifications to the right of the L5-S1 facet joint which may represent calcified mesenteric lymph nodes. Gastric sutures are noted in the left upper quadrant. Procedure Note Rose Whitten MD - 06/28/2018 HISTORY: As above. COMPARISON: None. LUMBAR SPINE RADIOGRAPH FINDINGS: 6 obtained. Mild mid lumbar levoscoliosis. Grade 1 spondylolisthesis ofL4 measuring 6 mm due to moderate facet arthropathy. No spondylolysis.Moderate L5-S1 facet arthropathy. Mild L4-5 and L5-S1 disc spacenarrowing. Multilevel endplate spurring. No compression deformities ordestructive bone lesions. Incidental pelvic phleboliths. There are smallnodular calcifications to the right of the L5-S1 facet joint which mayrepresent calcified mesenteric lymph nodes. Gastric sutures are noted inthe left upper quadrant. IMPRESSION: Mild levoscoliosis, grade 1 spondylolisthesis of L4 and multileveldegenerative disc disease with facet arthropathy. POS - [id number] Rena Donte Phillipse GLASS LAMINATING OPERATOR IMG XR SPINE Final Result documented in this encounter Visit Diagnoses Diagnosis Spondylosis without myelopathy or radiculopathy, lumbar region Spondylosis without myelopathy or radiculopathy, lumbar region documented in this encounter Additional Health Concerns Infection Onset Date Last Indicated Resolved Time CoV-Exposed Comment:Positive COVID-19 12/17/2020 12/17/2020 12/17/2020 6:0 1 PM EDT CoV-Risk 12/17/2020 12/17/2020 12/17/2020 6:01 PM EDT COVID-19 12/17/2020 12/17/2020 01/07/2021 1:24 AM EDT documented as of this encounter Care Teams Assistant Director Of Admissions Relationship Specialty Start Date End Date Laura Morgan MD [address] [place] [address] [place] [phone] PCP - General Internal Medicine 04/06/18 documented as of this encounter Additional Source Comments The information contained in this document represents components of the legal health record. It is not the complete legal health record.[facility]
--- OUTSIDE RECORDS SUMMARY | 2025-05-13 13:49 | XMS_ITS | Encounter Summary ---
Author Organization [facility] Address [address] [facility] [address] [place] [phone] Phone Care Team Providers Care Welder Explosion Name Role Phone Laura Morgan MD Primary Care Provider Reason for Referral * MRI/CAT Scan - Closed Specialty Diagnoses / Procedures Referred By Contac t Referred To Contact Radiology Diagnoses Spinal stenosis, lumbar region with neurogenic claudication Procedures MRI Lumbar Spine Rena Dia NP Phone: tel: fax: [email or web address] Referral ID Status Reason Start Date Expiration Date Visits Re quested Visits Authorized [id number] Closed 06/16/2022 06/16/2023 1 1 Encounter Details Date Type Department Care Team (Latest Contact Info) Description 06/16/2022 Transcribe Orders Virtual Department [address] [place] [address] Rena Dia NP [address] [place] [phone] [email or web address] Spinal stenosis, lumbar region with neurogenic claudication (Primary Dx) Social History Tobacco Use Types Packs/Day Years [...] Care Team (Late st Contact Info) Description 10/23/2025 11:00 AM EST Office Visit [facility] [address] [place] [address] 3rd Floor, [address] [place] [address] Hoang Zavala MD [address] [facility], [address] [place] [address] [email or web address] documented as of this encounter Results * MRI LUMBAR SPINE (NEURO) WITHOUT CONTRAST (07/10/2022 1:18 PM EST) Anatomical Region Laterality Modality L-spine Magnetic Resonan ce 07/12/2022 6:59 AM EST Impressions 07/13/2022 9:53 AM EST Lumbar spine degenerative changes as described, most notable for severe spinal canal stenosis at L4-L5, similar to 12/22/2018. No evidence of high-grade foraminal stenosis at any level. Narrative 07/13/2022 9:53 AM EST MRI LUMBAR SPINE (NEURO) WITHOUT CONTRAST TECHNIQUE: MRI LUMBAR SPINE (NEURO) WITHOUT CONTRAST Multi-sequence, multi-planar MRI of the lumbar spine was performed without intravenous contrast. COMPARISON: Lumbar spine MRI 12/22/2018. FINDINGS: LUMBAR SPINE: For numbering purposes, the lowest lumbar-type vertebral body will be labeled L5. Alignment and Vertebrae: Grade 1 anterolisthesis of L4 on L5, similar to 12/22/2018. No compression fracture. Marrow: No bone marrow replacing lesion. Discs and Endplates: No significant disc space narrowing. Conus: Normal. Soft Tissues: Benign-appearing renal cysts. No prevertebral edema. Other Findings: None. Findings by level: T12-L1: Diffuse disc bulge. Mild bilateral facet arthropathy. Mild right foraminal stenosis, similar prior. No significant spinal canal stenosis. L1-L2: Diffuse disc bulge. Right facet arthropathy. No significant neural foraminal or spinal canal stenosis. L2-L3: Diffuse disc bulge. Ligamentum flavum hypertrophy. Right facet arthropathy. No significant neural foraminal or spinal canal stenosis. L3-L4: Diffuse disc bulge. Bilateral facet arthropathy. Ligamentum flavum hypertrophy. Mild right foraminal stenosis, slightly worsened since prior. No significant spinal canal stenosis. L4-L5: Uncovering of the intervertebral disc by grade 1 anterolisthesis of L4 on L5, as well as diffuse disc bulge. Severe bilateral facet arthropathy. Ligamentum flavum hypertrophy. Similar severe spinal canal stenosis. Similar mild bilateral foraminal stenosis. L5-S1: Diffuse disc bulge. Bilateral facet arthropathy. No significant neural foraminal or spinal canal stenosis. Procedure Note Mingo Dyson MD - 07/13/2022 MRI LUMBAR SPINE (NEURO) WITHOUT CONTRAST TECHNIQUE: MRI LUMBAR SPINE (NEURO) WITHOUT CONTRAST Multi-sequence, multi-planar MRI of the lumbar spine was performed withoutintravenous contrast. COMPARISON: Lumbar spine MRI 12/22/2018. FINDINGS: LUMBAR SPINE: For numbering purposes, the lowest lumbar-type vertebral body will belabeled L5. Alignment and Vertebrae: Grade 1 anterolisthesis of L4 on L5, similar to12/22/2018. No compression fracture. Marrow: No bone marrow replacing lesion. Discs and Endplates: No significant disc space narrowing. Conus: Normal. Soft Tissues: Benign-appearing renal cysts. No prevertebral edema. Other Findings: None. Findings by level: T12-L1: Diffuse disc bulge. Mild bilateral facet arthropathy. Mild rightforaminal stenosis, similar prior. No significant spinal canal stenosis. L1-L2: Diffuse disc bulge. Right facet arthropathy. No significant neuralforaminal or spinal canal stenosis. L2-L3: Diffuse disc bulge. Ligamentum flavum hypertrophy. Right facetarthropathy. No significant neural foraminal or spinal canal stenosis. L3-L4: Diffuse disc bulge. Bilateral facet arthropathy. Ligamentum flavumhypertrophy. Mild right foraminal stenosis, slightly worsened since prior.No significant spinal canal stenosis. L4-L5: Uncovering of the intervertebral disc by grade 1 anterolisthesis ofL4 on L5, as well as diffuse disc bulge. Severe bilateral facetarthropathy. Ligamentum flavum hypertrophy. Similar severe spinal canalstenosis. Similar mild bilateral foraminal stenosis. L5-S1: Diffuse disc bulge. Bilateral facet arthropathy. No significantneural foraminal or spinal canal stenosis. IMPRESSION: Lumbar spine degenerative changes as described, most notable for severespinal canal stenosis at L4-L5, similar to 12/22/2018. No evidence ofhigh-grade foraminal stenosis at any level. us Rena Dia UNIFORM PATROL POLICE OFFICER IMG MR XSPECIALTY Final Result documented in this encounter Visit Diagnoses Diagnosis Spinal stenosis, lumbar region with neurogenic claudication- Primary Spinal stenosis, lumbar region with neurogenic claudication documented in this encounter Care Teams Welder Explosion Relationship Specialty Start Date End Date Laura Morgan MD [address] [place] [address] [place] [phone] PCP - General Internal Medicine 04/06/18 documented as of this encounter Additional Source Comments The information contained in this document represents components of the legal health record. It is not the complete legal health record.[facility]
--- OUTSIDE RECORDS SUMMARY | 2025-05-13 13:49 | XMS_ITS | Encounter Summary ---
Author Organization [facility] Address [address] [facility] [address] [place] [phone] Phone Care Team Providers Care Records Coordinator Name Role Phone Laura Morgan MD Primary Care Provider Reason for Referral * MRI/CAT Scan - Closed Specialty Diagnoses / Procedures Referred By Contelda t Referred To Contact Radiology Diagnoses Chronic pain of right knee Procedures MRI Knee (Right) Rena Dia NP Phone: tel: fax: [email or web address] Referral ID Status Reason Start Date Expiration Date Visits Re quested Visits Authorized [id number] Closed 07/03/2018 09/01/2018 1 1 Encounter Details Date Type Department Care Team (Late st Contact Info) Description 07/03/2018 Ancillary Orders Virtual Department [address] [place] [phone] Rena Dia NP [address] [place] [phone] [email or web address] Chronic pain of right knee Social History Tobacco Use Types Packs/Day Years [...] Description 10/23/2025 11:00 AM EST Office Visit [facility] [address] [facility] 3rd Floor, [address] [place] [address] Hoang Zavala MD [address] [facility], [address] [place] [address] documented as of this encounter Results * MRI KNEE WITHOUT CONTRAST (RIGHT) (07/19/2018 10:27 AM EST) Anatomical Region Laterality Modality Knee Right Magnetic Resonan ce 07/19/2018 10:2 0 AM EST Impressions 07/19/2018 10:41 AM EST 1. Tear of the medial meniscus involving the body/posterior horn junction and posterior meniscal root attachment. No bucket-handle tear. 2. Proximal anterior cruciate ligament partial tear versus intraligamentous ganglion cyst. 3. Advanced osteoarthritis with severe patellofemoral degenerative joint disease and mild medial knee compartment joint space narrowing with advanced degenerative osteochondral irregularity of the medial femoral condyle. 4. Severe lateral patellar facet chondromalacia. 5. Moderate-sized joint effusion and Grimm's cyst. POS - [id number] Narrative 07/19/2018 10:41 AM EST COMPARISON: Right knee radiographs 08/30/2016. TECHNIQUE: Exam performed on a 1.5 Camille high-field MRI scanner. Axial proton density with fat suppression, coronal proton density and proton density with fat suppression, sagittal T1, oblique sagittal proton density and proton density with fat suppression parallel to the plane of the ACL sequences were obtained. MRI RIGHT KNEE FINDINGS: Patella: No patella malalignment. Severe lateral facet chondromalacia with cartilage loss and subchondral marrow edema. Severe patellofemoral joint space narrowing and osteophytes. Menisci: Lateral meniscus is intact. No tear or discoid meniscus. There is a focal fluid signal intensity cleft within the junction of the body and posterior horn of the medial meniscus with blunting of the free edge of the posterior horn. There is also focal vertical fluid signal intensity defect in the posterior meniscal root attachment. There is extrusion of the medial meniscus from the joint space. Cruciate ligaments: There is focal intrasubstance fluid signal intensity within the proximal anterior cruciate ligament subcentimeter. Posterior cruciate ligament is intact. Collateral ligaments: Medial and lateral collateral ligaments are intact. Extensor mechanism: Quadriceps and patellar tendons are intact. Bone marrow/joint: Severe patellofemoral and mild medial knee compartment joint space narrowing. Tricompartmental osteophytes. There is medial femoral condyle osteochondral irregularity with cortical irregularity, subchondral marrow edema, cartilage thinning and loss. There are small ill-defined subchondral areas of marrow edema within the central and lateral tibial plateau which may represent edema or developing degenerative cysts. There is a small degenerative cyst in the posterior medial tibial plateau. There is a circumscribed lobulated T2 hyperintense bone lesion in the distal anterior femoral shaft measuring up to 1.5 cm corresponding to sclerotic lesion on radiograph representing an incidental enchondroma. Moderate-sized joint effusion and Grimm's cyst. No loose bodies. Procedure Note Rose Whitten MD - 07/19/2018 COMPARISON: Right knee radiographs 08/30/2016. TECHNIQUE: Exam performed on a 1.5 Camille high-field MRI scanner. Axialproton density with fat suppression, coronal proton density and protondensity with fat suppression, sagittal T1, oblique sagittal proton densityand proton density with fat suppression parallel to the plane of the ACLsequences were obtained. MRI RIGHT KNEE FINDINGS: Patella: No patella malalignment. Severe lateral facet chondromalaciawith cartilage loss and subchondral marrow edema. Severe patellofemoraljoint space narrowing and osteophytes. Menisci: Lateral meniscus is intact. No tear or discoid meniscus. Thereis a focal fluid signal intensity cleft within the junction of the bodyand posterior horn of the medial meniscus with blunting of the free edgeof the posterior horn. There is also focal vertical fluid signalintensity defect in the posterior meniscal root attachment. There isextrusion of the medial meniscus from the joint space. Cruciate ligaments: There is focal intrasubstance fluid signal intensitywithin the proximal anterior cruciate ligament subcentimeter. Posteriorcruciate ligament is intact. Collateral ligaments: Medial and lateral collateral ligaments areintact. Extensor mechanism: Quadriceps and patellar tendons are intact. Bone marrow/joint: Severe patellofemoral and mild medial knee compartmentjoint space narrowing. Tricompartmental osteophytes. There is medialfemoral condyle osteochondral irregularity with cortical irregularity,subchondral marrow edema, cartilage thinning and loss. There are smallill-defined subchondral areas of marrow edema within the central andlateral tibial plateau which may represent edema or developingdegenerative cysts. There is a small degenerative cyst in the posteriormedial tibial plateau. There is a circumscribed lobulated T2 hyperintensebone lesion in the distal anterior femoral shaft measuring up to 1.5 cmcorresponding to sclerotic lesion on radiograph representing an incidentalenchondroma. Moderate-sized joint effusion and Grimm's cyst. No loosebodies. IMPRESSION: 1. Tear of the medial meniscus involving the body/posterior horn junctionand posterior meniscal root attachment. No bucket-handle tear. 2. Proximal anterior cruciate ligament partial tear versusintraligamentous ganglion cyst. 3. Advanced osteoarthritis with severe patellofemoral degenerative jointdisease and mild medial knee compartment joint space narrowing withadvanced degenerative osteochondral irregularity of the medial femoralcondyle. 4. Severe lateral patellar facet chondromalacia. 5. Moderate-sized joint effusion and Grimm's cyst. POS - [id number] Rena Dia CALL CENTER RN IMG MR EXTREMITY Final Result documented in this encounter Visit Diagnoses Diagnosis Chronic pain of right knee Chronic pain of right knee documented in this encounter Additional Health Concerns Infection Onset Date Last Indicated Resolved Time CoV-Exposed Comment:Positive COVID-19 12/17/2020 12/17/2020 12/17/2020 6:0 1 PM EDT CoV-Risk 12/17/2020 12/17/2020 12/17/2020 6:01 PM EDT COVID-19 12/17/2020 12/17/2020 01/07/2021 1:24 AM EDT documented as of this encounter Care Teams Records Coordinator Relationship Specialty Start Date End Date Laura Morgan MD [address] [place] [address] [place] [phone] PCP - General Internal Medicine 04/06/18 documented as of this encounter Additional Source Comments The information contained in this document represents components of the legal health record. It is not the complete legal health record.[facility]
--- OUTSIDE RECORDS SUMMARY | 2025-05-13 13:50 | XMS_ITS | Encounter Summary ---
Author Organization [facility] Address [address] [facility] [address] [place] [address] Phone Care Team Providers Care Petrophysicist Name Role Phone Laura Morgan MD Primary Care Provider Encounter Details Date Type Department Care Team (Late Contact Info) Description 12/11/2018 Procedure Pass , [address] [address] Social History Tobacco Use Types Packs/Day Years [...] Description 10/23/2025 11:00 AM EST Office Visit [facility] [address] [place] [address] 3rd Floor, [address] [place] [address] Hoang Zavala MD [address] [facility], [address] [place] [address] [email or web address] documented as of this encounter Visit Diagnoses Not on filedocumented in this encounter Additional Health Concerns Infection Onset Date Last Indicated Resolved Time CoV-Exposed Comment:Positive COVID-19 12/17/2020 12/17/2020 12/17/2020 6:0 1 PM EDT CoV-Risk 12/17/2020 12/17/2020 12/17/2020 6:01 PM EDT COVID-19 12/17/2020 12/17/2020 01/07/2021 1:24 AM EDT documented as of this encounter Care Teams Petrophysicist Relationship Specialty Start Date End Date Laura Morgan MD [address] [place] [address] [place] [phone] PCP - General Internal Medicine 04/06/18 documented as of this encounter Additional Source Comments The information contained in this document represents components of the legal health record. It is not the complete legal health record.[facility]
--- OUTSIDE RECORDS SUMMARY | 2025-05-13 13:50 | XMS_ITS | Encounter Summary ---
Author Organization [facility] Address [address] [facility] [address] [place] [address] Phone Care Team Providers Care Rail Car Driver Name Role Phone Laura Morgan MD Primary Care Provider Reason for Referral * MRI/CAT Scan - Closed Specialty Diagnoses / Procedures Referred By Contelda t Referred To Contact Radiology Diagnoses Lumbar radiculopathy Procedures MRI Lumbar Spine Rena Dia NP Phone: tel: fax: [email or web address] Referral ID Status Reason Start Date Expiration Date Visits Re quested Visits Authorized [id number] Closed 12/08/2018 02/06/2019 1 1 Encounter Details Date Type Department Care Team (Latest Contact Info) Description 12/11/2018 Ancillary Orders Virtual Department [address] [place] [address] Rena Dia NP [address] [place] [phone] [email or web address] Lumbar radiculopathy Social History Tobacco Use Types Packs/Day Years [...] Description 10/23/2025 11:00 AM EST Office Visit [facility] [address] [facility] 3rd Floor, [address] [place] [address] Hoang Zavala MD [address] [facility], [address] [place] [address] [email or web address] documented as of this encounter Results * MRI LUMBAR SPINE (BONE) WITHOUT CONTRAST (12/22/2018 8:14 PM EDT) Anatomical Region Laterality Modality L-spine Magnetic Resonan ce 12/22/2018 8:17 PM EDT Impressions 12/22/2018 8:29 PM EDT Severe central canal and bilateral recess stenosis at the L4-5 level due to a combination of chronic grade 1 spondylolisthesis, broad-based disc bulge, and focal left paramedian disc protrusion. Mild multilevel disc bulging as above without additional disc protrusion, central canal stenosis, or significant neural foraminal compromise. POS - [id number] Narrative 12/22/2018 8:29 PM EDT TECHNIQUE: Exam performed on a 1.5 Camille high-field MRI scanner. Sagittal T1, T2 and STIR, axial T1 and T2 sequences were obtained. FINDINGS: Comparison is made with lumbar radiographs of 06/28/2018. On the sagittal sequences no focal disc protrusion or central canal stenosis are suggested at the T10-11 and T11-12 levels. T12-L1: There is moderate broad-based disc bulging flattening the ventral aspect of the thecal sac without focal disc protrusion or central canal stenosis. There is mild narrowing of the right neural foramen without overt mass effect upon the exiting nerve root. Left neural foramen is patent. L1-2: There is mild broad-based disc bulge. No focal disc protrusion, central canal stenosis, or significant neural foraminal compromise demonstrated. Minimal degenerative facet arthropathy. L2-L3: No focal disc protrusion, significant disc bulge, central canal stenosis, or neural foraminal compromise demonstrated. Mild degenerative facet arthropathy. L3-L4: Mild broad-based disc bulge slightly more focal near the neural foramina but without disc protrusion or central canal stenosis. No significant mass effect upon the exiting nerve roots within the foramina. L4-L5: There is chronic stable 6 mm anterolisthesis of the L4 relation to L5 vertebral bodies. There is broad-based disc bulge with a focal left paramedian disc protrusion. The spondylolisthesis and disc pathology contribute to severe central canal and bilateral recess stenosis. There is mild bilateral neural foraminal narrowing but without overt mass effect upon the exiting L4 nerve roots. There is severe advanced degenerative facet arthropathy without discrete spondylolysis detected. L5-S1: There is mild disc bulge without focal disc protrusion or central canal stenosis. There is slight left neural foraminal narrowing due to vertebral body endplate spurring and disc bulge but without overt mass effect upon the exiting L5 nerve root. Right neural foramen is relatively patent. There is a small fatty marrow signal focus along the anterior superior corner of the L1 vertebral body. No vertebral body compression deformity or significant marrow edema are demonstrated. Visualized portions of the tip of the conus are unremarkable. There is mild fatty infiltration of the paraspinal musculature. Right renal cysts are partially visualized. Procedure Note Glen Crow MD - 12/22/2018 TECHNIQUE: Exam performed on a 1.5 Camille high-field MRI scanner. SagittalT1, T2 and STIR, axial T1 and T2 sequences were obtained. FINDINGS: Comparison is made with lumbar radiographs of 06/28/2018. On the sagittal sequences no focal disc protrusion or central canalstenosis are suggested at the T10-11 and T11-12 levels. T12-L1: There is moderate broad-based disc bulging flattening the ventralaspect of the thecal sac without focal disc protrusion or central canalstenosis. There is mild narrowing of the right neural foramen withoutovert mass effect upon the exiting nerve root. Left neural foramen ispatent. L1-2: There is mild broad-based disc bulge. No focal disc protrusion,central canal stenosis, or significant neural foraminal compromisedemonstrated. Minimal degenerative facet arthropathy. L2-L3: No focal disc protrusion, significant disc bulge, central canalstenosis, or neural foraminal compromise demonstrated. Mild degenerativefacet arthropathy. L3-L4: Mild broad-based disc bulge slightly more focal near the neuralforamina but without disc protrusion or central canal stenosis. Nosignificant mass effect upon the exiting nerve roots within theforamina. L4-L5: There is chronic stable 6 mm anterolisthesis of the L4 relation toL5 vertebral bodies. There is broad-based disc bulge with a focal leftparamedian disc protrusion. The spondylolisthesis and disc pathologycontribute to severe central canal and bilateral recess stenosis. Thereis mild bilateral neural foraminal narrowing but without overt mass effectupon the exiting L4 nerve roots. There is severe advanced degenerativefacet arthropathy without discrete spondylolysis detected. L5-S1: There is mild disc bulge without focal disc protrusion or centralcanal stenosis. There is slight left neural foraminal narrowing due tovertebral body endplate spurring and disc bulge but without overt masseffect upon the exiting L5 nerve root. Right neural foramen is relativelypatent. There is a small fatty marrow signal focus along the anterior superiorcorner of the L1 vertebral body. No vertebral body compression deformityor significant marrow edema are demonstrated. Visualized portions of thetip of the conus are unremarkable. There is mild fatty infiltration ofthe paraspinal musculature. Right renal cysts are partially visualized. IMPRESSION: Severe central canal and bilateral recess stenosis at the L4-5 level dueto a combination of chronic grade 1 spondylolisthesis, broad-based discbulge, and focal left paramedian disc protrusion. Mild multilevel disc bulging as above without additional disc protrusion,central canal stenosis, or significant neural foraminal compromise. POS - [id number] Rena Dia NP IMG MR XSPECIALTY Final Result documented in this encounter Visit Diagnoses Diagnosis Lumbar radiculopathy Thoracic or lumbosacral neuritis or radiculitis, unspecified Lumbar radiculopathy Thoracic or lumbosacral neuritis or radiculitis, unspecified documented in this encounter Additional Health Concerns Infection Onset Date Last Indicated Resolved Time CoV-Exposed Comment:Positive COVID-19 12/17/2020 12/17/2020 12/17/2020 6:0 1 PM EDT CoV-Risk 12/17/2020 12/17/2020 12/17/2020 6:01 PM EDT COVID-19 12/17/2020 12/17/2020 01/07/2021 1:24 AM EDT documented as of this encounter Care Teams Rail Car Driver Relationship Specialty Start Date End Date Laura Morgan MD [address] [place] [address] [place] [phone] PCP - General Internal Medicine 04/06/18 documented as of this encounter Additional Source Comments The information contained in this document represents components of the legal health record. It is not the complete legal health record.[facility]
--- OUTSIDE RECORDS SUMMARY | 2025-05-13 13:50 | XMS_ITS | Encounter Summary ---
Author Organization [facility] Address [address] [place] [phone] Phone Care Team Providers Care Cabin Furnishings Installer Name Role Phone Laura Morgan MD Primary Care Provider Reason for Referral * Physical Therapy (Routine) - Closed Specialty Diagnoses / Procedures Referred By Cookie bryan Referred To Contact Physical Therapy Diagnoses Encounter for rehabilitation Rena Dia NP Phone: tel: fax: mailto:[email or web address] [address] [place] [address] Phone: tel: Referral ID Status Reason Start Date Expiration Date Visits Re quested Visits Authorized [id number] Closed 10/18/2019 08/21/2020 99 99 Encounter Details Date Type Department Care Team (Latest Contact Info) Description 10/18/2019 Transcribe Orders [facility] [address] [place] [address] Rena Dia NP [address] [place] [phone] [email or web address] Encounter for rehabilitation (Primary Dx) Social History Tobacco Use Types [...] Description 10/23/2025 11:00 AM EST Office Visit [facility] [address] [facility] 3rd Floor, [address] [place] [address] Hoang Zavala MD [address] [facility], [address] [place] [address] [email or web address] documented as of this encounter Procedures Procedure Name Priority Date/Time Associated Diagnosis Comments AMB REFERRAL TO [facility] PHYSICAL THERAPY Routine 11/26/2019 3:13 PM EDT Encounter for rehabilitation documented in this encounter Results * Ambulatory referral to [facility] Physical Therapy (11/26/2019 3:13 PM EDT) us Rena Dia NP AMB [facility] REFERRALS Final Result documented in this encounter Visit Diagnoses Diagnosis Encounter for rehabilitation- Primary documented in this encounter Additional Health Concerns Infection Onset Date Last Indicated Resolved Time CoV-Exposed Comment:Positive COVID-19 12/17/2020 12/17/2020 12/17/2020 6:0 1 PM EDT CoV-Risk 12/17/2020 12/17/2020 12/17/2020 6:01 PM EDT COVID-19 12/17/2020 12/17/2020 01/07/2021 1:24 AM EDT documented as of this encounter Care Teams Cabin Furnishings Installer Relationship Specialty Start Date End Date Laura Morgan MD [address] [place] [address] [place] [phone] PCP - General Internal Medicine 04/06/18 documented as of this encounter Additional Source Comments The information contained in this document represents components of the legal health record. It is not the complete legal health record.[facility]
--- OUTSIDE RECORDS SUMMARY | 2025-05-13 13:50 | XMS_ITS | Clinical Summary ---
Author Organization [facility] Address [address] [facility] [address] [place] [phone] Phone Care Team Providers Care Email Manager Name Role Phone Laura Morgan MD Primary Care Provider Allergies No known active allergies Medications omeprazole (PRILOSEC) 20 mg TbEC 20 mg daily. Active traZODone (DESYREL) 50 MG tablet Take 50 mg by mouth nightly. Active metoprolol tartrate (LOPRESSOR) 25 MG tablet Take 1 tablet (25 mg total) by mouth 2 (two) times a day. 60 tablet 5 8 Active acetaminophen (TYLENOL) 325 mg tablet Take 2 tablets (650 mg total) by mouth every 6 (six) hours as needed for mild pain. 40 tablet 0 Active gabapentin (NEURONTIN) 100 MG capsule Take 100 mg by mouth 2 (two) times a day. 2 Active buPROPion (WELLBUTRIN SR) 200 MG SR 12 hr tablet Take 100 mg by mouth daily. 2 Active atorvastatin (LIPITOR) 20 MG tablet Take 20 mg by mouth daily. 2 Active FLUoxetine (PROZAC) 20 MG capsule TOME JORGE CAPSULA VIA ORAL CADA ZAID 3 Active ELIQUIS 5 mg tablet TAKE ONE TABLET BY MOUTH EVERY 12 HOURS 180 tablet 3 3 Active amLODIPine (NORVASC) 10 MG tablet TOME JORGE TABLETA VIA ORAL CADA ZAID 3 Active FLOVENT HFA 44 mcg/actuation inhaler INHALE DOS DISPAROS VIA ORAL DOS VECES AL ZAID 3 Active hydrOXYzine (VISTARIL) 25 MG capsule TAKE 1-2 CAPSULES BY MOUTH ONCE A DAY CLAY SEA NECESARIO FOR ANSIEDAD 3 Active LORazepam (ATIVAN) 0.5 MG tablet TAKE 1-2 TABLETS BY MOUTH 1 HOUR PRIOR TO PROCEDURE LUMBAR INJECTION) 3 Active oxyCODONE-aceta minophen (PERCOCET) 5-325 mg per tablet TAKE ONE TABLET BY MOUTH UP TO TWICE A DAY. USE SPARINGLY NEEDED FOR SEVERE PAIN. 3 Active SENNA 8.6 mg tablet TOME JORGE TABLETA VIA ORAL AL ACOSTARSE CLAY SEA NECESARIO FOR CONSTIPATION. MAY TAKE 2 TABLETS IF NEEDED. 3 Active Active Problems Problem Noted Date Diagnosed Date A-fib 08/08/2018 Assessment & Plan (06/11/2022 2:01 PM EDT): Completely asymptomatic. Continue Eliquis and metoprolol without change. Assessment & Plan (12/18/2020 4:29 PM EDT): Continue her home dose of Eliquis 5 mg twice daily Continue metoprolol titrate 25 mg twice daily and amlodipine 2.5 mg daily Atrial fibrillation with RVR 08/07/2018 Assessment & Plan (11/03/2021 10:56 AM EDT): J is rate controlled on metoprolol 25 mg twice daily, she is anticoagulated with apixaban 5 mg twice daily. She will remain on his medications without change. She is asymptomatic. Assessment & Plan (08/07/2018 3:55 PM EST): Patient has new onset atrial fibrillation with RVR, rates as high as the 110s 120s in the ER. She was quite symptomatic with activity with dyspnea as well as some shoulder and chest pain. She has not had any hypoxia, her d-dimer was elevated and CTA was done which was negative for PE. Patient had a steroid injection of the right knee on the morning before her symptoms started, does not take steroids chronically. Also, just started on phentermine which is a stimulant and can be linked to irregular heartbeat, I will hold this. No alcohol or caffeine. I will check serial troponins, echocardiogram, TSH, cardiology consultation, lipid panel Given metoprolol by mouth for rate control as per ERs discussion with cardiology, also started on Eliquis, her chads score is 1, further plan of care as per cardiology and hospitalist team Chest pain in adult 08/07/2018 Assessment & Plan (08/07/2018 3:45 PM EST): Likely related to new A. fib and rapid heart rate, feels much improved in the ER after metoprolol, has a sensation of dyspnea and chest discomfort with activity. Cycle cardiac enzymes, placed on beta-manolo, aspirin, Eliquis, cardiology consultation CTPA was negative for PE Hyperglycemia 08/07/2018 Assessment & Plan (08/07/2018 4:09 PM EST): Random glucose is 190, she denies history of type 2 diabetes, I will check a hemoglobin A1c and Accu-Cheks with sliding scale Depression 03/21/2018 Assessment & Plan (08/07/2018 3:46 PM EST): Continue Wellbutrin DJD (degenerative joint disease) 03/21/2018 Overview (08/07/2018): Overview: Right knee Assessment & Plan (08/07/2018 3:54 PM EST): Follows with her PCP and orthopedist, got a injection to the right knee on Tuesday just before her symptoms started Patient was due to start gabapentin as well as tramadol for her chronic arthritic pain, I will hold off right now GERD (gastroesophageal reflux disease) 8 Assessment & Plan (08/07/2018 3:47 PM EST): Continue PPI History of bariatric surgery 03/21/2018 Overview (08/07/2018): Overview: Lap Chencho-en-Y Hypertension 03/21/2018 Assessment & Plan (06/11/2022 2:02 PM EDT): BP in office today 128/82, patient reports that at home it is usually around 120 systolic. Continue metoprolol and amlodipine without change. Assessment & Plan (11/03/2021 10:55 AM EDT): Blood pressure controlled today at 128/66. She is on amlodipine 5 mg daily, metoprolol 25 mg twice daily which she will remain on. She was encouraged to follow heart healthy diet including low sodium and to lose weight. Assessment & Plan (08/07/2018 3:46 PM EST): I will hold the patient's HCTZ for right now, started on beta-manolo, will continue lisinopril and amlodipine at lower doses, cardiology consultation pending Resolved Problems Problem Noted Date Diagnosed Date Resolved Date Acute respiratory disease du e to COVID-19 virus 12/17/2020 12/23/2020 Assessment & Plan (12/22/2020 5:25 PM EDT): -Completed remdesivir -Will discontinue dexamethasone on discharge probably tomorrow -If she is able to remain off of oxygen through tomorrow then she will be ready for discharge Immunizations Immunization Administration Dates Next Due COVID-19 (Pre-06/13) Pfizer Vaccine, mRNA, PF INFLUENZA, SPLIT VIRUS, TRIVALENT PF 06/28/2016 Influenza High-Dose Quadrivalent Preservative Fr ee IM 06/29/2020 Zoster recombinant 01/18/2018,11/08/2017 Family History Medical History Relation Comments Heart disease Father Relation Status Comments Father Social History Tobacco Use Types Packs/Day Years Used Date Smoking Tobacco: Never Smokeless Tobacco: Never Tobacco Cessation:Counseling Given: Not Answered Alcohol Use Standard Drinks/Week Comments No 0 (1 standard drink = 0.6 oz pur e alcohol) Education Answer Date Recorded Are you interested in more education? Not on herbie e 12/17/2022 Are you concerned about learning? Not on file 12/17/2022 No 12/17/2022 No 12/17/2022 Digital Access Answer Date Recorded No 01/17/2023 No 01/17/2023 Reliable internet access at home? Not on file 01/17/2023 Device with a working camera? Not on file Intimate Partner Violence Answer Date R ecorded Are you denied basic needs s uch as food, clothing, or medical care? No 12/11/2024 In the past 12 months have y ou been in a relationship with a person who hurts, threatens, or tries to control you? No 12/11/2024 Are you denied basic needs s uch as food, clothing, or medical care? No 12/11/2024 In the past 12 months have y ou been in a relationship with a person who hurts, threatens, or tries to control you? No 12/11/2024 Comments Unknown Sex and Gender Information Value Date Recorded Sex Assigned at Female 04/06/2018 9:56 AM EDT Legal Sex Female 9:57 PM EDT Gender Identity Female 04/06/2018 9:56 AM EDT Sexual Orientation Straight 04/06/2018 9: 56 AM EDT Last Filed Vital Signs Vital Sign Reading Time Taken Comments Blood Pressure 144/76 12/11/2024 1:30 PM EDT Pulse 52 12/11/2024 1:30 PM EDT Temperature 36.2 C (97.1 F) 12/11/2024 1:30 PM EDT Respiratory Rate 18 12/11/2024 1:30 PM EDT Oxygen Saturation 96% 12/11/2024 1:30 PM EDT Inhaled Oxygen Concentration - - Weight 93 kg (205 lb) 12/11/2024 9:42 AM EDT Height 160 cm (5' 3 ) 12/11/2024 9:42 AM EDT Body Mass Index 36.31 12/11/2024 9:42 AM EDT Plan of Treatment Upcoming Encounters Date Type Department Care Team (Late st Contact Info) Description 10/23/2025 11:00 AM EST Office Visit [facility] [address] [place] [address] 3rd Floor, [address] [place] [address] Hoang Zavala MD [address] [facility], [address] [place] [phone] [email or web address] Health Maintenance Due Date Last Done Comments Adult Td,Tdap Booster 1954 DEPRESSION SCREENING 1966 HEPATITIS C SCREENING 1972 MAMMOGRAM 1994 COLOGUARD 1999 COLONOSCOPY 1999 COLORECTAL CANCER SCREENING 1999 FIT TEST 1999 FOBT 1999 SIGMOIDOSCOPY 1999 VIRTUAL COLONOSCOPY 1999 PNEUMOCOCCAL VACCINES (50+ years) (1 of 1 - PCV) 2004 RSV VACCINE (1 - Risk 60-74 years 1-dose series) 2014 OSTEOPOROSIS SCREENING INITIAL (ONE-TIME) 2019 INFLUENZA VACCINE (#1) 2025 06/29/2020, 2015 COVID-19 VACCINE (2 - 2024- season) 2025 11/01/2020 BLOOD PRESSURE 05/11/2025 11/08/2024 CREATININE LEVEL 12/11/2025 12/11/2024, , 03/01/2023, Additional history exists LIPID PANEL 11/03/2026 11/03/2021, 08/08/2018 ZOSTER VACCINES Completed 01/18/2018, 11/08/2017 SMOKING STATUS SCREENING (Once After 26 Yrs) Completed 12/11/2024 HEPATITIS A VACCINES Aged Out No long er eligible based on patient's age to complete this topic HIB VACCINES Aged Out No longer eligi ble based on patient's age to complete this topic MENINGOCOCCAL VACCINES (ACWY) Aged Out No longer eligible based on patient's age to complete this topic MENINGOCOCCAL VACCINES (B) Aged Out N o longer eligible based on patient's age to complete this topic Medical Devices Not on file Procedures Procedure Name Priority Date/Time Associated Diagnosis Comments BASIC METABOLIC PANEL STAT 12/11/2024 12:15 PM EDT LIPID PANEL Routine 11/03/2021 11:00 AM EDT Borderline hyperlipidemia from Last 3 Months or Most Recently Relevant to Health Maintenance Results * Basic metabolic panel (12/11/2024 12:15 PM EDT) SODIUM 135 133 - 146 mmol/L [facility] CHLORIDE 101 96 - 108 mmol/L [facility] POTASSIUM 4.3 3.3 - 5.1 mmol/L [facility] CO2 26 21 - 35 mmol/L [facility] BUN 19 6 - 19 mg/dL [facility] CREATININE 0.80 0.5 - 1.5 mg/dL [facility] GLUCOSE 95 70 - 99 mg/dL [facility] CALCIUM 9.2 8.4 - 10.3 mg/dL [facility] EGFR 79 >59 mL/min/1.7 3m2 [facility] Comment:Estimated glomerular filtration rate calculated using the CKD-EPI refit equation. ANION GAP 12 10 - 20 mmol/L [facility] Blood 12/11/2024 12:1 5 PM EDT 12/11/2024 12:34 PM EDT us Pura Tripp PA-C LAB BLOOD ORDERABLES Final Result Performing Organization Address City/State/[facility] Co de Phone Number [address] [address] * (ABNORMAL) Lipid panel (11/03/2021 11:00 AM EDT) HDL 56 mg/dL [facility] Comment: Interpretation <40 mg/dL: Low HDL cholesterol (major risk factor for CHD) Greater than or equal to 60 mg/dL: High HDL cholesterol ( negative risk factor for CHD) HDL - cholesterol is affected by a number of factors, e.g. smoking, excerise, hormones, sex and age. CHOLESTEROL 162 0 - 240 mg/dL [facility] TRIGLYCERIDES 128 30 - 160 mg/dL [facility] LDL 80 50 - 129 mg/dL [facility] Comment: LDL levels in terms of risk for coronary heart disease: <100 mg/dL: Optimal 100-129 mg/dL: Near or above optimal 130-159 mg/dL: Borderline high 160-189 mg/dL: High >190 mg/dL: Very High CARDIAC RISK RATIO 2.9(L) 3.3 - 4.4 [facility] Blood 11/03/2021 11:0 0 AM EDT 11/03/2021 11:05 AM EDT us Rhina Elias DNP LAB BLOOD ORDERABLES Final Result [facility] [address] [place] [address] from Last 3 Months or Most Recently Relevant to Health Maintenance Insurance [facility] MEDICARE REPLACEMENT [facility] MEDICARE REPLACEMENT [facility] MEDICARE REPLACEMENT MEDICARE REPLACEMENT [facility] MEDICARE REPLACEMENT MEDICARE REPLACEMENT Advance Directives For more information, please contact: [phone] (9AM - 5PM [facility], Tuesday-Tuesday) * Full Code (Latest Code Status on File) Date Activated Date Inactivated Comments 12/17/2020 8:17 PM Question Answer Comments Code Status Confirmed With: Patient * Full Code (Confirmed) Date Activated Date Inactivated Comments 08/07/2018 4:04 PM 08/08/2018 3:26 PM Question Answer Comments Code Status Confirmed With: Patient Care Teams Email Manager Relationship Specialty Start Date End Date Laura Morgan MD [address] [place] [address] [place] [phone] PCP - General Internal Medicine 04/06/18 Additional Source Comments The information contained in this document represents components of the legal health record. It is not the complete legal health record.[facility]
--- OUTSIDE RECORDS SUMMARY | 2025-05-13 13:50 | XMS_ITS | Patient Health Record ---
Author Organization [facility] Address [address] [place] [address] Care Team Providers Care Melt House Centrifugal Operator Name Role Phone EmilyLaura toure Primary Care Provider Unavailab Rich Mays Unavailable [phone] Jocelyn Weiner Unavailable Unavailable Allergies No Known [...] Negative Encounters Encounter Location Date Provider Diagnosis [facility] [address] [place] [address] 05/22/2024 [place] [facility] [address] [place] [address] 10/04/2024 [place] Plan Of Treatment No Information Insurance Providers Payer Name Payer Address Payer Phone Subscriber Number Group Number Insured Name Patient Relationship to Insured Coverage Start Date Coverage End Date [facility] [address] [place] [id number] Self - patient is the insured Medical (General) History Medical History History ICD Code spinal stenosis Gout CKD stage 3 hx of DVT Afib vitamin B12 deficiency hepatitis C Leukopenia hypertension Surgical History Surgery Date(Month/Year) trigger finger release laparoscopy with lysis of adhesions hysterectomy gastric bypass breast reduction surgery
--- OUTSIDE RECORDS SUMMARY | 2025-05-13 13:50 | XMS_ITS | Encounter Summary ---
Author Organization [facility] Address [address] [facility] [address] [place] [address] Phone Care Team Providers Care Supervisor Stitching Department Name Role Phone Laura Morgan MD Primary Care Provider Encounter Details Date Type Department Care Team (Late Contact Info) Description 01/03/2019 Ancillary Orders [facility], X-Ray - [address] [address] Rena Dia NP [address] [place] [phone] [email or web address] Spondylolisthesis, lumbar region Social History Tobacco Use Types [...] Description 10/23/2025 11:00 AM EST Office Visit [facility] [address] [place] [address] 3rd Floor, [address] [place] [address] Hoang Zavala MD [address] [facility], [address] [place], [place] [phone] [email or web address] documented as of this encounter Results * XR LUMBOSACRAL SPINE 2-3 VIEWS (01/03/2019 11:56 AM EDT) Anatomical Region Laterality Modality L-spine Radiographic Gina ging 01/03/2019 12:1 0 PM EDT Impressions 01/03/2019 12:13 PM EDT Mild instability at L4 with increase in grade 1 spondylolisthesis with flexion. Stable multilevel disc disease and facet arthropathy. POS - [id number] Narrative 01/03/2019 12:13 PM EDT HISTORY: As above. COMPARISON: 06/28/2018. LUMBAR SPINE RADIOGRAPH FINDINGS: Three lateral views obtained with flexion and extension. Stable diffuse endplate spurring, moderate L3-4, L4-5 and L5-S1 facet arthropathy and mild L4-5 and L5-S1 disc space narrowing. Again noted is Grade 1 spondylolisthesis of L4 measuring 8 mm which increases to 1 cm with flexion. No compression fractures or bone lesions. Soft tissues are normal. Procedure Note Rose Whitten MD - 01/03/2019 HISTORY: As above. COMPARISON: 06/28/2018. LUMBAR SPINE RADIOGRAPH FINDINGS: Three lateral views obtained with flexion and extension. Stable diffuseendplate spurring, moderate L3-4, L4-5 and L5-S1 facet arthropathy andmild L4-5 and L5-S1 disc space narrowing. Again noted is Grade 1spondylolisthesis of L4 measuring 8 mm which increases to 1 cm withflexion. No compression fractures or bone lesions. Soft tissues arenormal. IMPRESSION: Mild instability at L4 with increase in grade 1 spondylolisthesis withflexion. Stable multilevel disc disease and facet arthropathy. POS - [id number] Rena Dia SUPERVISOR ACOUSTICAL TILE CARPENTERS IMG XR SPINE Final Result documented in this encounter Visit Diagnoses Diagnosis Spondylolisthesis, lumbar region Spondylolisthesis, lumbar region documented in this encounter Additional Health Concerns Infection Onset Date Last Indicated Resolved Time CoV-Exposed Comment:Positive COVID-19 12/17/2020 12/17/2020 12/17/2020 6:0 1 PM EDT CoV-Risk 12/17/2020 12/17/2020 12/17/2020 6:01 PM EDT COVID-19 12/17/2020 12/17/2020 01/07/2021 1:24 AM EDT documented as of this encounter Care Teams Supervisor Stitching Department Relationship Specialty Start Date End Date Laura Morgan MD [address] [place] [address] [place] [phone] PCP - General Internal Medicine 04/06/18 documented as of this encounter Additional Source Comments The information contained in this document represents components of the legal health record. It is not the complete legal health record.[facility]
== END 2025-05-13 11:11 | disposition home or self-care (01) ==
LOC: HO.LAB 11:10
PROVIDERS: PCP Internal Medicine; Visit Provider Internal Medicine
DX: I10 Essential (primary) hypertension (principal); R60.0 Localized edema; R73.01 Impaired fasting glucose; R74.01 Elevation of levels of liver transaminase levels
CPT/HCPCS: 36415; 80053; 80061; 83036

== ENCOUNTER 2025-07-17 10:48 | Outpatient (REF) | payer OTHER, SELFPAY ==
--- NOTE | ~2025-07-17 | US_ITS ---
EXAMINATION: US COMPLETE ABDOMEN WITH LIVER ELASTOGRAPHY CLINICAL INFORMATION: Elevated LFTs COMPARISON: None available. TECHNIQUE: Real-time imaging of the abdominal viscera. Noninvasive ultrasound liver fibrosis assessment is performed using Roseline ElastPQ point quantification shear wave elastography (pSWE) with a C5-2 MHz transducer. Multiple elastography samples are obtained. FINDINGS: PANCREAS: The visualized pancreatic head and body are normal in appearance. The remainder of the pancreas is obscured from visualization by the overlying bowel gas. ABDOMINAL AORTA: No aortic aneurysm is seen. INFERIOR VENA CAVA: Visualized portions are normal. LIVER: Liver demonstrates coarse echogenicity that is mildly increased. The right lobe measures 15.5 cm in length. The left lobe measures 9 cm in length. Portal flow is patent with a normal direction of flow and a continuous venous waveform Shear wave liver elastography median stiffness is 0.91 m/s (reference: normal median stiffness is 1.3 m/s or less). IQR/median stiffness to assess sampling precision is 0.15 (reference: good quality data set is IQR/median stiffness of 0.15 or less). GALLBLADDER: The gallbladder is physiologically distended without evidence of stones, sludge, polyps, wall thickening or pericholecystic fluid. COMMON BILE DUCT: Normal in caliber measuring 5 mm in diameter. RIGHT KIDNEY: No hydronephrosis. No renal calculi were demonstrated. There are 3 anechoic simple renal cysts, the largest measures 4.8 cm. The kidney measures 11 cm in maximum dimension. LEFT KIDNEY: No hydronephrosis. No renal calculi are demonstrated. There is a anechoic simple renal cyst measuring 12 mm diameter. The kidney measures 10 cm in maximum dimension. SPLEEN: Unremarkable. The spleen measures 7 cm in maximum dimension. FREE FLUID: None seen. US/US abdomen comp w elastography IMPRESSION: 1. The liver demonstrates coarse echogenic texture consistent with hepatic steatosis and/or hepatic parenchymal disease otherwise. 2. Liver elastography: Measurements are consistent with a high probability of normal liver stiffness. REFERENCE: Society of Radiologists in Ultrasound Liver Stiffness Thresholds (2020): LIVER STIFFNESS THRESHOLDS: *Liver Stiffness equal or less than 1.3 m/s: High probability of being normal. *Liver Stiffness less than 1.7 m/s: In the absence of other known clinical signs, rules out compensated advanced chronic liver disease. *Liver Stiffness 1.7-2.1 m/s: Suggestive of compensated advanced chronic liver disease but need further test for confirmation. *Liver Stiffness over 2.1 m/s: Rules in compensated advanced chronic liver disease. *Liver Stiffness over 2.4 m/s: Suggestive of clinically significant portal hypertension. QUALITY OF DATA SET: *IQR/Median value equal or less than 0.15 implies a quality data set. *IQR/Median value over 0.15 implies a poor quality data set. SIGNIFICANT CHANGE FROM PRIOR EXAM: Significant change if liver stiffness measurement is 10% or greater from prior exam. OTHER CONSIDERATIONS: The stage of liver fibrosis may be overestimated in the setting of acute hepatitis, liver inflammation, elevated liver function tests, hepatic vascular congestion, obstructive cholestasis, non-fasting state, and infiltrative diseases such as amyloidosis and lymphoma. In some patients with NAFLD, the liver stiffness thresholds for compensated advanced chronic liver disease may be lower. In causes other than viral hepatitis and NAFLD, liver stiffness thresholds are not well established. Electronically signed by: Adithya Rogers MD 07/17/2025 12:07 PM [facility]
--- OUTSIDE RECORDS SUMMARY | 2025-07-17 13:09 | XMS_ITS | Encounter Summary ---
Author Organization [facility] Address [address] [facility] [address] [place] [address] Phone Care Team Providers Care Surgical Garment Assembler Name Role Phone Laura Morgan MD Primary Care Provider Reason for Referral * MRI/CAT Scan - Closed Specialty Diagnoses / Procedures Referred By Contac t Referred To Contact Radiology Diagnoses Spinal stenosis, lumbar region with neurogenic claudication Procedures MRI Lumbar Spine Rena Dia NP Phone: tel: fax: mailto:[email or web address] Referral ID Status Reason Start Date Expiration Date Visits Re quested Visits Authorized [id number] Closed 06/16/2022 06/16/2023 1 1 Encounter Details Date Type Department Care Team (Latest Contact Info) Description 06/16/2022 Transcribe Orders Virtual Department [address] [place] [address] Rena Dia NP [address] [place] [phone] [email or web address] Spinal stenosis, lumbar region with neurogenic claudication [...] Description 10/23/2025 11:00 AM EST Office Visit [facility] [address] [place] [address] 3rd Floor, [address] [place] [address] Hoang Zavala MD [address] [facility], [address] [place] [address] [email or web address] documented as of this encounter Results * [...] stenosis at any level. us Rena Dia WARP SPINNER IMG MR XSPECIALTY Final Result documented in this encounter Visit Diagnoses Diagnosis Spinal stenosis, lumbar region with neurogenic claudication- Primary Spinal stenosis, lumbar region with neurogenic claudication documented in this encounter Care Teams Surgical Garment Assembler Relationship Specialty Start Date End Date Laura Morgan MD [address] [place] [address] [place] [phone] PCP - General Internal Medicine 04/06/18 documented as of this encounter Additional Source Comments The information contained in this document represents components of the legal health record. It is not the complete legal health record.[facility]
--- OUTSIDE RECORDS SUMMARY | 2025-07-17 13:09 | XMS_ITS | Encounter Summary ---
Author Organization [facility] Address [address] [facility] [address] [place] [address] Phone Care Team Providers Care First Assistant Manager Name Role Phone Laura Morgan MD Primary Care Provider Encounter Details Date Type Department Care Team (Late Contact Info) Description 06/16/2022 Procedure Pass [facility], [address] [address] Social History Tobacco Use Types Packs/Day Years [...] Description 10/23/2025 11:00 AM EST Office Visit [facility] [address] [place] [address] 3rd Floor, [address] [place] [address] Hoang Zavala MD [address] [facility], [address] [place] [address] [email or web address] documented as of this encounter Visit Diagnoses Not on filedocumented in this encounter Care Teams First Assistant Manager Relationship Specialty Start Date End Date Laura Morgan MD [address] [place] [address] [place] [phone] PCP - General Internal Medicine 04/06/18 documented as of this encounter Additional Source Comments The information contained in this document represents components of the legal health record. It is not the complete legal health record.[facility]
--- OUTSIDE RECORDS SUMMARY | 2025-07-17 13:10 | XMS_ITS | Encounter Summary ---
Author Organization [facility] Address [address] [facility] [address] [place] [address] Phone Care Team Providers Care Liquor Grinder Mill Operator Name Role Phone Laura Morgan MD Primary Care Provider Reason for Referral * MRI/CAT Scan - Closed Specialty Diagnoses / Procedures Referred By Contelda t Referred To Contact Radiology Diagnoses Chronic pain of right knee Procedures MRI Knee (Right) Rena Dia NP Phone: tel: fax: mailto:[email or web address] Referral ID Status Reason Start Date Expiration Date Visits Re quested Visits Authorized [id number] Closed 07/03/2018 09/01/2018 1 1 Encounter Details Date Type Department Care Team (Late st Contact Info) Description 07/03/2018 Ancillary Orders Virtual Department [address] [place] [address] Rena Dia NP [address] [place] [phone] [email or web address] Chronic pain of right knee Social History [...] Description 10/23/2025 11:00 AM EST Office Visit [facility] [address] [facility] 3rd Floor, [address] [place] [address] Hoang Zavala MD [address] [facility], [address] [place] [address] [email or web address] documented as of this encounter Results * [...] joint effusion and Grimm's cyst. POS - [id number] Narrative 07/19/2018 10:41 AM EST COMPARISON: Right [...] joint effusion and Grimm's cyst. POS - [id number] Rena Dia BICYCLE REPAIRER IMG MR EXTREMITY Final Result documented in this encounter Visit Diagnoses Diagnosis Chronic pain of right knee Chronic pain of right knee documented in this encounter Additional Health Concerns Infection Onset Date Last Indicated Resolved Time CoV-Exposed Comment:Positive COVID-19 12/17/2020 12/17/2020 12/17/2020 6:0 1 PM EDT CoV-Risk 12/17/2020 12/17/2020 12/17/2020 6:0 1 PM EDT COVID-19 12/17/2020 12/17/2020 01/07/2021 1:24 AM EDT documented as of this encounter Care Teams Liquor Grinder Mill Operator Relationship Specialty Start Date End Date Laura Morgan MD NPI: [id number] [place] [address] [place] [address] PCP - General Internal Medicine 04/06/18 documented as of this encounter Additional Source Comments The information contained in this document represents components of the legal health record. It is not the complete legal health record.[facility]
--- OUTSIDE RECORDS SUMMARY | 2025-07-17 13:10 | XMS_ITS | Clinical Summary ---
Author Organization [facility] Address [address] [facility] [address] [place] [address] Phone Care Team Providers Care Wire Welder Name Role Phone Laura Morgan MD Primary [...] Description 10/23/2025 11:00 AM EST Office Visit [facility] [address] [place] [address] 3rd Floor, [address] [place] [address] Hoang Zavala MD [address] [facility], [address] [place] [address] [email or web address] Health Maintenance Due Date Last Done Comments Adult Td,Tdap Booster 1954 DEPRESSION SCREENING 1966 HEPATITIS C SCREENING 1972 MAMMOGRAM 1994 COLOGUARD 1999 COLONOSCOPY 1999 COLORECTAL CANCER SCREENING 1999 FIT TEST 1999 FOBT 1999 SIGMOIDOSCOPY 1999 VIRTUAL COLONOSCOPY 1999 PNEUMOCOCCAL VACCINES (50+ years) (1 of 1 - PCV) 2004 OSTEOPOROSIS SCREENING INITIAL (ONE-TIME) 2019 INFLUENZA VACCINE (#1) 2025 06/29/2020, 2015 COVID-19 VACCINE (2 - season) 2025 11/01/2020 BLOOD PRESSURE 05/11/2025 11/08/2024 CREATININE LEVEL 12/11/2025 12/11/2024, , 03/01/2023, Additional history exists LIPID PANEL 11/03/2026 11/03/2021, 08/08/2018 RSV VACCINE (1 - 1-dose 75+ series) 2029 ZOSTER VACCINES Completed 01/18/2018, 11/08/2017 SMOKING STATUS [...] Date/Time Associated Diagnosis Comments BASIC METABOLIC PANEL (BMP) STAT 12/11/2024 12:15 PM EDT LIPID PANEL Routine 11/03/2021 11:00 AM EDT Borderline hyperlipidemia from Last 3 Months or Most Recently Relevant to Health Maintenance Results * Basic metabolic panel (12/11/2024 12:15 PM EDT) SODIUM 135 133 - 146 mmol/L [facility] CHLORIDE 101 96 - 108 mmol/L [facility] POTASSIUM 4.3 3.3 - 5.1 mmol/L [facility] CO2 26 21 - 35 mmol/L [facility] BUN 19 6 - 19 mg/dL [facility] CREATININE 0.80 0.5 - 1.5 mg/dL [facility] GLUCOSE 95 70 - 99 mg/dL [facility] CALCIUM 9.2 8.4 - 10.3 mg/dL [facility] EGFR 79 >59 mL/min/1.7 3m2 [facility] Comment:Estimated glomerular filtration rate calculated using the CKD-EPI refit equation. ANION GAP 12 10 - 20 mmol/L [facility] Blood 12/11/2024 12:1 5 PM EDT 12/11/2024 12:34 PM EDT us Pura Tripp PA-C LAB BLOOD BKR ORDERAB LES Final Result [address] [id number] * (ABNORMAL) Lipid panel (11/03/2021 11:00 AM EDT) HDL 56 mg/dL [facility] Comment: Interpretation <40 mg/dL: Low HDL cholesterol (major risk factor for CHD) Greater than or equal to 60 mg/dL: High HDL cholesterol ( negative risk factor for CHD) HDL - cholesterol is affected by a number of factors, e.g. smoking, excerise, hormones, sex and age. CHOLESTEROL 162 0 - 240 mg/dL [facility] TRIGLYCERIDES 128 30 - 160 mg/dL [facility] LDL 80 50 - 129 mg/dL [facility] Comment: LDL levels in terms of risk for coronary heart disease: <100 mg/dL: Optimal 100-129 mg/dL: Near or above optimal 130-159 mg/dL: Borderline high 160-189 mg/dL: High >190 mg/dL: Very High CARDIAC RISK RATIO 2.9(L) 3.3 - 4.4 C [facility] Blood 11/03/2021 11:0 0 AM EDT 11/03/2021 11:05 AM EDT us Rhina Elias DNP LAB BLOOD BKR ORDERABLES F inal Result [facility] [address] [place], [place] [id number] from Last 3 Months or Most Recently Relevant to Health Maintenance [place] [address] [address] [place] [address] MEDICARE REPLACEMENT [facility] MEDICARE REPLACEMENT [facility] MEDICARE REPLACEMENT MEDICARE [place] [address] [place] [address] MEDICARE REPLACEMENT MEDICARE REPLACEMENT Advance Directives For more information, please contact: [phone] (9AM - 5PM [facility], Tuesday-Tuesday) * Full Code (Latest Code Status on File) Date Activated Date Inactivated Comments 12/17/2020 8:17 PM Question Answer Comments Code Status Confirmed With: Patient * Full Code (Confirmed) Date Activated Date Inactivated Comments 08/07/2018 4:04 PM 08/08/2018 3:26 PM Question Answer Comments Code Status Confirmed With: Patient Care Teams Wire Welder Relationship Specialty Start Date End Date Laura Morgan MD [address] [place] [address] [place] [phone] PCP - General Internal Medicine 04/06/18 Additional Source Comments The information contained in this document represents components of the legal health record. It is not the complete legal health record.[facility]
--- OUTSIDE RECORDS SUMMARY | 2025-07-17 13:10 | XMS_ITS | Encounter Summary ---
Author Organization [facility] Address [address] [facility] [address] [place] [address] Phone Care Team Providers Care Detail Drafter Name Role Phone Laura Morgan MD Primary Care Provider Encounter Details Date Type Department Care Team (Late Contact Info) Description 07/03/2018 Procedure Pass [facility], [address] [address] Social History Tobacco Use Types Packs/Day Years [...] Description 10/23/2025 11:00 AM EST Office Visit [facility] [address] [place] [address] 3rd Floor, [address] [place] [address] Hoang Zavala MD [address] [facility], [address] [place] [address] [email or web address] documented as of this encounter Visit Diagnoses Not on filedocumented in this encounter Additional Health Concerns Infection Onset Date Last Indicated Resolved Time CoV-Exposed Comment:Positive COVID-19 12/17/2020 12/17/2020 12/17/2020 6:0 1 PM EDT CoV-Risk 12/17/2020 12/17/2020 12/17/2020 6:01 PM EDT COVID-19 12/17/2020 12/17/2020 01/07/2021 1:24 AM EDT documented as of this encounter Care Teams Detail Drafter Relationship Specialty Start Date End Date Laura Morgan MD [address] [place] [address] [place] [phone] PCP - General Internal Medicine 04/06/18 documented as of this encounter Additional Source Comments The information contained in this document represents components of the legal health record. It is not the complete legal health record.[facility]
--- OUTSIDE RECORDS SUMMARY | 2025-07-17 13:10 | XMS_ITS | Encounter Summary ---
Author Organization [facility] Address [address] [facility] [address] [place] [address] Phone Care Team Providers Care Architectural Design Professor Name Role Phone Laura Morgan MD Primary Care Provider Encounter Details Date Type Department Care Team (Late Contact Info) Description 06/28/2018 Ancillary Orders [facility], X-Ray - [address] [place] [address] [address] Rena Dia NP [address] [place] [phone] [email or web address] Spondylosis without myelopathy or radiculopathy, lumbar region [...] Description 10/23/2025 11:00 AM EST Office Visit [facility] [address] [place] [address] 3rd Floor, [address] [place], [place] [phone] Hoang Zavala MD [address] [facility], [address] [place], [place] [phone] [email or web address] documented as of this encounter Results * [...] arthropathy. POS - [id number] Rena Donte Phillipse OPEN END SPINNING OPERATOR IMG XR SPINE Final Result documented [...] documented as of this encounter Care Teams Architectural Design Professor Relationship Specialty Start Date End Date Laura Morgan MD [address] [place] [address] [place] [phone] PCP - General Internal Medicine 04/06/18 documented as of this encounter Additional Source Comments The information contained in this document represents components of the legal health record. It is not the complete legal health record.[facility]
--- OUTSIDE RECORDS SUMMARY | 2025-07-17 13:10 | XMS_ITS | Encounter Summary ---
Author Organization [facility] Address [address] [facility] [address] [place] [address] Phone Care Team Providers Care Client Service Coordinator Name Role Phone Laura Morgan MD Primary Care Provider Encounter Details Date Type Department Care Team (Late Contact Info) Description 01/03/2019 Ancillary Orders [facility], X-Ray - [address] [address] Rena Dia NP [address] [place] [phone] [email or web address] Spondylolisthesis, lumbar region Social History Tobacco Use [...] Description 10/23/2025 11:00 AM EST Office Visit [facility] [address] [place] [address] 3rd Floor, [address] [place] [address] Hoang Zavala MD [address] [facility], [address] [place], [place] [phone] [email or web address] documented as of this encounter Results * [...] facet arthropathy. POS - [id number] Rena Dia BOOK REPAIRER IMG XR SPINE Final Result documented in this encounter Visit Diagnoses Diagnosis Spondylolisthesis, lumbar region Spondylolisthesis, lumbar region documented in this encounter Additional Health Concerns Infection Onset Date Last Indicated Resolved Time CoV-Exposed Comment:Positive COVID-19 12/17/2020 12/17/2020 12/17/2020 6:0 1 PM EDT CoV-Risk 12/17/2020 12/17/2020 12/17/2020 6:01 PM EDT COVID-19 12/17/2020 12/17/2020 01/07/2021 1:24 AM EDT documented as of this encounter Care Teams Client Service Coordinator Relationship Specialty Start Date End Date Laura Morgan MD [address] [place] [address] [place] [phone] PCP - General Internal Medicine 04/06/18 documented as of this encounter Additional Source Comments The information contained in this document represents components of the legal health record. It is not the complete legal health record.[facility]
--- OUTSIDE RECORDS SUMMARY | 2025-07-17 13:10 | XMS_ITS | Encounter Summary ---
Author Organization [facility] Address [address] [facility] [address] [place] [address] Phone Care Team Providers Care Machine Clerical Verifier Name Role Phone Laura Morgan MD Primary Care Provider Encounter Details Date Type Department Care Team (Late Contact Info) Description 12/11/2018 Procedure Pass [facility], [address] [address] Social History Tobacco Use Types Packs/Day Years [...] Description 10/23/2025 11:00 AM EST Office Visit [facility] [address] [place] [address] 3rd Floor, [address] [place] [address] Hoang Zavala MD [address] [facility], [address] [place] [address] [email or web address] documented as of this encounter Visit Diagnoses Not on filedocumented in this encounter Additional Health Concerns Infection Onset Date Last Indicated Resolved Time CoV-Exposed Comment:Positive COVID-19 12/17/2020 12/17/2020 12/17/2020 6:0 1 PM EDT CoV-Risk 12/17/2020 12/17/2020 12/17/2020 6:01 PM EDT COVID-19 12/17/2020 12/17/2020 01/07/2021 1:24 AM EDT documented as of this encounter Care Teams Machine Clerical Verifier Relationship Specialty Start Date End Date Laura Morgan MD [address] [place] [address] [place] [phone] PCP - General Internal Medicine 04/06/18 documented as of this encounter Additional Source Comments The information contained in this document represents components of the legal health record. It is not the complete legal health record.[facility]
--- OUTSIDE RECORDS SUMMARY | 2025-07-17 13:11 | XMS_ITS | Encounter Summary ---
Author Organization [facility] Address [address] [facility] [address] [place] [address] Phone Care Team Providers Care Membership Assistant Name Role Phone Laura Morgan MD Primary Care Provider Reason for Referral * MRI/CAT Scan - Closed Specialty Diagnoses / Procedures Referred By Contelda t Referred To Contact Radiology Diagnoses Lumbar radiculopathy Procedures MRI Lumbar Spine Rena Dia NP Phone: tel: fax: mailto:[email or web address] Referral ID Status Reason Start Date Expiration Date Visits Re quested Visits Authorized [id number] Closed 12/08/2018 02/06/2019 1 1 Encounter Details Date Type Department Care Team (Latest Contact Info) Description 12/11/2018 Ancillary Orders Virtual Department [address] [place] [address] Rena Dia NP [address] [place] [phone] [email or web address] Lumbar radiculopathy Social History Tobacco Use Types [...] Description 10/23/2025 11:00 AM EST Office Visit [facility] [address] [facility] 3rd Floor, [address] [place] [address] Hoang Zavala MD 22 [facility], [address] [place] [address] [email or web address] documented as of this encounter Results * [...] or significant neural foraminal compromise. POS - [id number] Narrative 12/22/2018 8:29 PM EDT TECHNIQUE: Exam [...] or significant neural foraminal compromise. POS - [id number] Rena Dia NP IMG MR XSPECIALTY Final [...] documented as of this encounter Care Teams Membership Assistant Relationship Specialty Start Date End Date Laura Morgan MD [address] [place] [address] [place] [phone] PCP - General Internal Medicine 04/06/18 documented as of this encounter Additional Source Comments The information contained in this document represents components of the legal health record. It is not the complete legal health record.[facility]
--- OUTSIDE RECORDS SUMMARY | 2025-07-17 13:11 | XMS_ITS | Encounter Summary ---
Author Organization [facility] Address [address] [place] [phone] Phone Care Team Providers Care Engineer Automated Equipment Name Role Phone Laura Morgan MD Primary Care Provider Reason for Referral * Physical Therapy (Routine) - Closed Specialty Diagnoses / Procedures Referred By Cookie bryan Referred To Contact Physical Therapy Diagnoses Encounter for rehabilitation Rena Dia NP Phone: tel: fax: mailto:[email or web address] [facility] [address] [place] [address] Phone: tel: Referral ID Status Reason Start Date Expiration Date Visits Re quested Visits Authorized [id number] Closed 10/18/2019 08/21/2020 99 [phone] Encounter Details Date Type Department Care Team (Latest Contact Info) Description 10/18/2019 Transcribe Orders [facility] [address] [place] [address] Rena Dia NP [address] [place] [phone] [email or web address] Encounter for rehabilitation (Primary Dx) Social History [...] Description 10/23/2025 11:00 AM EST Office Visit [facility] [address] [facility] [address] Floor, [address] [place] [address] Hoang Zavala MD [address] [facility], [address] [place] [address] [email or web address] documented as of this encounter Procedures Procedure Name Priority Date/Time Associated Diagnosis Comments AMB REFERRAL TO [facility] PHYSICAL THERAPY Routine 11/26/2019 3:13 PM EDT Encounter for rehabilitation documented in this encounter Results * Ambulatory referral to [facility] Physical Therapy (11/26/2019 3:13 PM EDT) us Rena Dia NP AMB [facility] REFERRALS Final Result documented in this encounter Visit Diagnoses Diagnosis Encounter for rehabilitation- Primary documented in this encounter Additional Health Concerns Infection Onset Date Last Indicated Resolved Time CoV-Exposed Comment:Positive COVID-19 12/17/2020 12/17/2020 12/17/2020 6:0 1 PM EDT CoV-Risk 12/17/2020 12/17/2020 12/17/2020 6:01 PM EDT COVID-19 12/17/2020 12/17/2020 01/07/2021 1:24 AM EDT documented as of this encounter Care Teams Engineer Automated Equipment Relationship Specialty Start Date End Date Laura Morgan MD [address] [place] [address] [place] [id number] PCP - General Internal Medicine 04/06/18 documented as of this encounter Additional Source Comments The information contained in this document represents components of the legal health record. It is not the complete legal health record.[facility]
== END 2025-07-17 10:49 | disposition home or self-care (01) ==
LOC: HO.US 10:48
PROVIDERS: PCP Internal Medicine; Visit Provider Internal Medicine
DX: R74.01 Elevation of levels of liver transaminase levels (principal)
CPT/HCPCS: 76700; 76981

== ENCOUNTER → 2025-07-17 11:15 | Outpatient (BNV) | payer OTHER, SELFPAY | PROVIDERS: PCP Internal Medicine; Visit Provider Radiology Diagnostic Radiology | DX: R94.5 Abnormal results of liver function studies (principal) | CPT/HCPCS: 76700 ==